=== PATIENT | male | born 1955 | race Caucasian/White ===

== ENCOUNTER 2019-08-26 09:15 | Outpatient (CLI) | payer OTHER, SELFPAY ==
[2019-08-26 10:27] LABS: Hematocrit 48.6 % (42.0-52.0); Hemoglobin 15.1 g/dL (14.0-18.0); Mean Corpuscular HGB Conc 31.1 g/dl (32-36); Mean Corpuscular Hemoglobin 27.3 pg (26-34); Mean Corpuscular Volume 87.7 fl (80-100); Mean Platelet Volume 12.8 fl (7.4-10.4); Platelet Count Result 171 k/mm3 (150-375); Red Blood Count 5.54 M/mm3 (4.6-6.20); Red Cell Distribution Width 15.1 % (11.5-14.5)
[2019-08-26 10:42] LABS: Blood Urea Nitrogen 14 mg/dL (9-20); Calcium 9.5 mg/dL (8.4-10.2); Carbon Dioxide 29 mmol/L (22-30); Chloride 98 mmol/L (98-107); Estimated Glomerular Filt Rate > 60; Glucose 145 mg/dL (75-110); Potassium 4.3 mmol/L (3.4-5.0); Sodium 138 mmol/L (137-145)
[2019-08-26 11:16] LABS: Vitamin D 25 Hydroxy 25.7 ng/mL
[2019-08-30 15:26] LABS: CMV IgM Antibody <30.00 AU/mL (<30.00)
[2019-08-31 14:58] LABS: EBV Nuclear Ab Interpretation Past; EBV Virus Capsid Ag IgG Ab >750.00 U/mL (<18.00); EBV Virus Capsid Ag IgM Ab <36.00 U/mL (<36.00)
== END 2019-08-26 09:16 | disposition home or self-care (01) ==
PROVIDERS: PCP Family Medicine; Visit Provider Physician Assistant Medical
DX: R53.82 Chronic fatigue, unspecified (principal); Z79.899 Other long term (current) drug therapy
CPT/HCPCS: 36415; 80048; 82306; 82607; 84443; 85027; 86644; 86645; 86664; 86665

== ENCOUNTER 2020-01-09 16:10 | Outpatient (CLI) | payer OTHER, SELFPAY ==
[2020-01-10 01:16] LABS: Hematocrit 47.3 % (42.0-52.0); Hemoglobin 15.3 g/dL (14.0-18.0); Immature Platelet Fraction Pct 16.2 % (0.9-11.2); Mean Corpuscular HGB Conc 32.3 g/dl (32-36); Mean Corpuscular Hemoglobin 27.9 pg (26-34); Mean Corpuscular Volume 86.2 fl (80-100); Mean Platelet Volume 13.3 fl (7.4-10.4); Platelet Count Result 153 k/mm3 (150-375); Red Blood Count 5.49 M/mm3 (4.6-6.20); Red Cell Distribution Width 14.8 % (11.5-14.5); White Blood Count 6.2 K/mm3 (4.5-10.0)
[2020-01-10 13:45] LABS: Blood Urea Nitrogen 16 mg/dL (9-20); Calcium 9.4 mg/dL (8.4-10.2); Carbon Dioxide 24 mmol/L (22-30); Chloride 99 mmol/L (98-107); Estimated Glomerular Filt Rate > 60; Glucose 269 mg/dL (75-110); Potassium 4.2 mmol/L (3.4-5.0); Sodium 136 mmol/L (137-145)
== END 2020-01-09 16:11 | disposition home or self-care (01) ==
PROVIDERS: PCP Family Medicine; Visit Provider Physician Assistant Medical
DX: R00.2 Palpitations (principal)
CPT/HCPCS: 36415; 80048; 84443; 85027; 85055

== ENCOUNTER 2020-01-16 13:52 | Outpatient (CLI) | payer OTHER, SELFPAY ==
[2020-01-16 14:53] LABS: Hemoglobin A1C 12.1 % (<5.7)
[2020-01-16 14:56] LABS: Blood Urea Nitrogen 13 mg/dL (9-20); Calcium 9.4 mg/dL (8.4-10.2); Carbon Dioxide 28 mmol/L (22-30); Chloride 97 mmol/L (98-107); Estimated Glomerular Filt Rate > 60; Glucose 497 mg/dL (75-110); Potassium 4.5 mmol/L (3.4-5.0); Sodium 133 mmol/L (137-145)
--- NOTE | 2020-01-19 12:34 | WPDHOLTEREM ---
Holter/Event Monitor Holter/Event Monitor Date of procedure: 01/16/20 Procedure Type: 48 hour holter monitor Indications: Palpitations Conclusion: 1. 48 hour holter monitor on 01/16/20. 2. Predominant rhythm is sinus rhythm. HR range 46-109 bpm; average HR 70 bpm. 3. There are 203 premature supraventricular complexes, 8 supraventricular couplets, 3 supraventricular bigeminy and 3 supraventricular trigeminy. There are 8 episodes of atrial tachycardia, fastest at 150 bpm and longest lasting 52 beats. 4. There are 815 premature ventricular complexes, 16 ventricular couplets and 2 ventricular triplets. No ventricular tachycardia. 5. No sinoatrial or atrioventricular blocks. No significant pauses greater than 2 seconds. 6. Patient reports racing heartbeat at 01:53 which demonstrate atrial tachycardia at 143 bpm.
== END 2020-01-16 13:53 | disposition home or self-care (01) ==
PROVIDERS: Referring Provider Family Medicine; Visit Provider Physician Assistant Medical
DX: R73.09 Other abnormal glucose (principal); E87.1 Hypo-osmolality and hyponatremia; R00.2 Palpitations
CPT/HCPCS: 36415; 80048; 83036; 93225; 93226

== ENCOUNTER 2020-01-18 15:57 | Outpatient (CLI) | payer OTHER, SELFPAY ==
[2020-01-18 16:39] LABS: Alanine Aminotransferase 124 U/L (4-50); Albumin Level 4.2 g/dL (3.5-5.1); Alkaline Phosphatase 118 U/L (38-126); Aspartate Amino Transferase 65 U/L (17-59); Bilirubin,Total 0.3 mg/dL (0.2-1.3); Blood Urea Nitrogen 19 mg/dL (9-20); Calcium 9.5 mg/dL (8.4-10.2); Carbon Dioxide 26 mmol/L (22-30); Chloride 101 mmol/L (98-107); Cholesterol 109 mg/dL (0-200); Estimated Glomerular Filt Rate > 60; Glucose 257 mg/dL (75-110); HDL Direct 58 mg/dL; Potassium 4.1 mmol/L (3.4-5.0); Sodium 135 mmol/L (137-145); Triglycerides 124 mg/dL (<150)
[2020-01-18 16:50] LABS: LDL Cholesterol Direct 32 mg/dL
[2020-01-22 03:59] LABS: Insulin Level Total 12.5 uIU/mL (<=19.6)
[2020-01-22 23:12] LABS: C-Peptide 3.73 ng/mL (0.80-3.85)
== END 2020-01-18 15:58 | disposition home or self-care (01) ==
PROVIDERS: Visit Provider Physician Assistant Medical
DX: E11.9 Type 2 diabetes mellitus without complications (principal); Z13.220 Encounter for screening for lipoid disorders
CPT/HCPCS: 36415; 80053; 80061; 83525; 84681

== ENCOUNTER 2020-01-27 13:53 | Outpatient (CLI) | payer OTHER, SELFPAY ==
[2020-01-27 16:11] LABS: Hepatitis B Surface Antigen Negative (Negative)
[2020-01-27 16:17] LABS: HAV RESULT Negative (Negative); Hepatitis B Core IgM Result Negative (Negative)
[2020-01-27 16:28] LABS: Hepatitis C Virus Antibody Negative (Negative)
== END 2020-01-27 13:54 | disposition home or self-care (01) ==
PROVIDERS: Visit Provider Physician Assistant Medical
DX: R79.89 Other specified abnormal findings of blood chemistry (principal)
CPT/HCPCS: 36415; 80074

== ENCOUNTER → 2020-08-09 13:32 | Outpatient (REF) | payer OTHER, SELFPAY | LOC: ANHLAB 13:32 | PROVIDERS: Visit Provider Nurse Practitioner | DX: R22.9 Localized swelling, mass and lump, unspecified (principal) | CPT/HCPCS: 88304 ==

== ENCOUNTER 2021-03-19 11:52 | Outpatient (CLI) | payer OTHER, SELFPAY ==
[2021-03-19 12:27] LABS: Basophils Absolute Auto 0.1 K/mm3 (0.0-0.1); Eosinophils Absolute Auto 0.3 K/mm3 (0-0.3); Eosinophils Percent Auto 4.9 % (0-4.4); Hematocrit 46.9 % (42.0-52.0); Hemoglobin 14.8 g/dL (14.0-18.0); Immature Granulocyte Absolute 0.03 K/mm3 (0.00-0.031); Immature Granulocyte Percent A 0.4 % (0-0.5); Lymphocytes Absolute Auto 1.53 K/mm3 (0.9-3.2); Lymphocytes Percent Auto 22.6 % (18.3-44.2); Mean Corpuscular HGB Conc 31.6 g/dl (32-36); Mean Corpuscular Hemoglobin 27.5 pg (26-34); Mean Corpuscular Volume 87.2 fl (80-100); Mean Platelet Volume 11.4 fl (7.4-10.4); Monocytes Absolute Auto 0.7 K/mm3 (0.1-0.6); Monocytes Percent Auto 10.6 % (2.6-8.5); Neutrophils Absolute Auto 4.1 K/mm3 (1.3-6.7); Neutrophils Percent Auto 60.5 % (45.5-73.1); Platelet Count Result 184 k/mm3 (150-375); Red Blood Count 5.38 M/mm3 (4.6-6.20); Red Cell Distribution Width 14.5 % (11.5-14.5); White Blood Count 6.8 K/mm3 (4.5-10.0)
[2021-03-19 12:47] LABS: Alanine Aminotransferase 69 U/L (4-50); Albumin Level 4.5 g/dL (3.5-5.1); Alkaline Phosphatase 69 U/L (38-126); Anion Gap 10 mmol/L (8-16); Aspartate Amino Transferase 48 U/L (17-59); Bilirubin,Total 0.3 mg/dL (0.2-1.3); Blood Urea Nitrogen 16 mg/dL (9-20); CRP < 0.5 mg/dL (<1.0); Calcium 9.5 mg/dL (8.4-10.2); Carbon Dioxide 25 mmol/L (22-30); Chloride 104 mmol/L (98-107); Cholesterol 98 mg/dL (0-200); Estimated Glomerular Filt Rate > 60; Glucose 106 mg/dL (65-110); HDL Direct 79 mg/dL; Potassium 4.4 mmol/L (3.4-5.0); Sodium 139 mmol/L (137-145); Triglycerides 53 mg/dL (<150)
[2021-03-19 13:02] LABS: Creatinine Urine 90.1 mg/dL
[2021-03-19 13:19] LABS: LDL Cholesterol Direct < 30 mg/dL
[2021-03-19 13:20] LABS: MALB Creatinine Ratio < 6.7 mg/g (0-30); Microalbumin Urine Random < 6.0 mg/L (0-16.7)
[2021-03-19 13:28] LABS: Erythrocyte Sedimentation Rate 3 mm/hr (0-20)
[2021-03-21 11:09] LABS: Anti Nuclear Antibody Pattern Nuclear, Nucleolar
== END 2021-03-19 11:53 | disposition home or self-care (01) ==
LOC: ANHLAB 11:56
PROVIDERS: Visit Provider Nurse Practitioner Family
DX: L81.9 Disorder of pigmentation, unspecified (principal); Z13.29 Encounter for screening for other suspected endocrine disorder; E11.9 Type 2 diabetes mellitus without complications; R79.89 Other specified abnormal findings of blood chemistry; E78.5 Hyperlipidemia, unspecified
CPT/HCPCS: 36415; 80053; 80061; 82043; 84443; 85025; 85652; 86038; 86039; 86140

== ENCOUNTER 2021-08-14 16:29 | Outpatient (CLI) | payer OTHER, SELFPAY ==
--- NOTE | ~2021-08-14 | XR_ITS ---
EXAMINATION: XR wrist RT min 3V DATE: 08/14/2021 16:56 INDICATION: Right wrist pain. TECHNIQUE: 5 views of right wrist were obtained. COMPARISON: None. FINDINGS: Bone alignment is normal. No fracture. There is mild osteoarthritis of radiolunate joint, r adioscaphoid joint, triscaphe joint, and first carpometacarpal joint. IMPRESSION: 1. Mild polyarticular osteoarthritis. Reviewed, dictated and finalized at location E. ICAL TRIAL EDUCATOR
== END 2021-08-14 16:30 | disposition home or self-care (01) ==
LOC: ANHIMG 16:33
PROVIDERS: Visit Provider Nurse Practitioner Family
DX: M19.031 Primary osteoarthritis, right wrist (principal)
CPT/HCPCS: 73110

== ENCOUNTER 2021-09-04 12:20 | Outpatient (CLI) | payer OTHER, SELFPAY ==
[2021-09-04 13:02] LABS: Rheumatoid Factor < 8.6 IU/ML (<12)
[2021-09-04 13:03] LABS: CRP < 0.5 mg/dL (<1.0)
[2021-09-04 14:20] LABS: Erythrocyte Sedimentation Rate 3 mm/hr (0-20)
== END 2021-09-04 12:21 | disposition home or self-care (01) ==
DX: R76.8 Other specified abnormal immunological findings in serum (principal); M25.50 Pain in unspecified joint
CPT/HCPCS: 36415; 85652; 86140; 86430

== ENCOUNTER 2021-09-10 11:03 | Outpatient (CLI) | payer OTHER, SELFPAY | END 2021-09-10 11:04 | disposition home or self-care (01) | DX: M25.50 Pain in unspecified joint (principal) | CPT/HCPCS: 36415; 82728 ==

== ENCOUNTER 2023-03-02 11:30 | Outpatient (CLI) | payer MEDICARE, OTHER, SELFPAY ==
[2023-03-02 12:10] LABS: Hematocrit 45.2 % (42.0-52.0); Hemoglobin 14.5 g/dL (14.0-18.0); Mean Corpuscular HGB Conc 32.1 g/dl (32-36); Mean Corpuscular Hemoglobin 28.4 pg (26-34); Mean Corpuscular Volume 88.6 fl (80-100); Mean Platelet Volume 11.4 fl (7.4-10.4); Platelet Count Result 168 k/mm3 (150-375); Red Cell Distribution Width 14.8 % (11.5-14.5); White Blood Count 5.9 K/mm3 (4.5-10.0)
[2023-03-02 12:27] LABS: Alanine Aminotransferase 150 U/L (6-50); Albumin Level 4.5 g/dL (3.5-5.1); Alkaline Phosphatase 73 U/L (38-126); Anion Gap 3 mmol/L (8-16); Aspartate Amino Transferase 86 U/L (17-59); Bilirubin,Total 0.3 mg/dL (0.2-1.3); Blood Urea Nitrogen 16 mg/dL (9-20); Calcium 9.3 mg/dL (8.4-10.2); Carbon Dioxide 32 mmol/L (22-30); Chloride 103 mmol/L (98-107); Cholesterol 118 mg/dL (0-200); Estimated Glomerular Filt Rate > 60; Glucose 111 mg/dL (65-110); HDL Direct 82 mg/dL; Potassium 4.5 mmol/L (3.4-5.0); Sodium 138 mmol/L (137-145); Triglycerides 42 mg/dL (<150)
[2023-03-02 12:39] LABS: LDL Cholesterol Direct 33 mg/dL
[2023-03-02 12:54] LABS: Prostate Specific Antigen 1.4 ng/mL (< OR = 4.0)
[2023-03-02 12:54] LABS: Creatinine Urine 61.9 mg/dL
[2023-03-02 13:16] LABS: MALB Creatinine Ratio < 9.7 mg/g (0-30); Microalbumin Urine Random < 6.0 mg/L (0-16.7)
== END 2023-03-02 11:31 | disposition home or self-care (01) ==
PROVIDERS: PCP Family Medicine; Visit Provider Physician Assistant Medical
DX: E11.9 Type 2 diabetes mellitus without complications (principal); K21.9 Gastro-esophageal reflux disease without esophagitis; Z12.5 Encounter for screening for malignant neoplasm of prostate; R74.01 Elevation of levels of liver transaminase levels
CPT/HCPCS: 36415; 80053; 80061; 82043; 84153; 84443; 85027; G0103

== ENCOUNTER 2023-03-04 10:50 | Outpatient (CLI) | payer MEDICARE, OTHER, SELFPAY ==
[2023-03-04 13:30] LABS: Hepatitis B Surface Antigen Negative (Negative)
[2023-03-04 13:36] LABS: HAV RESULT Negative (Negative); Hepatitis B Core IgM Result Negative (Negative)
[2023-03-04 13:48] LABS: Hepatitis C Virus Antibody Negative (Negative)
[2023-03-06 15:52] LABS: GGT 45 U/L (3-70)
== END 2023-03-04 10:51 | disposition home or self-care (01) ==
PROVIDERS: PCP Family Medicine; Visit Provider Nurse Practitioner Family
DX: R74.8 Abnormal levels of other serum enzymes (principal); R74.01 Elevation of levels of liver transaminase levels
CPT/HCPCS: 36415; 80074; 82977

== ENCOUNTER → 2023-03-27 09:40 | Outpatient (CLI) | payer MEDICARE, OTHER, SELFPAY ==
--- NOTE | ~2023-03-27 | US_ITS ---
Abdominal Sonogram: Real-time sonographic imaging of the abdomen was performed. Clinical History: Abnormal serum enzyme levels Findings: The liver appears echogenic, with no evidence of mass lesion or bile duct dilatation. Main portal vein demonstrates normal direction of flow. The spleen is normal in size without evidence of focal lesion. The gallbladder is well distended, and appears normal with no evidence of gallstone or wall thickening. The common bile duct measures 5 mm. The visualized pancreas, aorta, and IVC are un remarkable. The right kidney measures 10.8 cm in length and the left kidney measures 9.8 cm. There is no hydronephrosis or renal calculus. Impression: Diffuse fatty infiltration of the liver. Reviewed, dictated and finalized at location M. Impression: Diffuse fatty infiltration of the liver.
== END ==
PROVIDERS: PCP Physician Assistant Medical; Visit Provider Physician Assistant Medical
DX: R74.8 Abnormal levels of other serum enzymes (principal); K76.0 Fatty (change of) liver, not elsewhere classified
CPT/HCPCS: 76700

== ENCOUNTER 2023-06-12 07:39 | Outpatient (CLI) | payer MEDICARE, OTHER, SELFPAY ==
--- NOTE | ~2023-06-12 | US_ITS ---
US abdomen limited INDICATION: Fatty infiltration of the liver PROCEDURE: Realtime right upper abdominal ultrasound. COMPARISON: No prior studies for comparison. FINDINGS: The pancreas is normal without focal mass or pancreatic ductal dilation. Liver echotexture is diffusely increased, consistent with fatty infiltration. There is normal directional flow in the portal vein. The gallbladder is normal without stones, gallbladder wall thickening or pericholecystic fluid. Comm on bile duct measures 3 mm. No sonographic Hernández's sign. IMPRESSION: 1: Fatty infiltration of the liver. Reviewed, dictated and finalized at location B. ING NEWS PRODUCER
== END 2023-06-12 07:40 | disposition home or self-care (01) ==
LOC: ANHIMG 07:42
PROVIDERS: PCP Physician Assistant Medical; Visit Provider Internal Medicine Gastroenterology
DX: K76.0 Fatty (change of) liver, not elsewhere classified (principal); R79.89 Other specified abnormal findings of blood chemistry; R74.8 Abnormal levels of other serum enzymes
CPT/HCPCS: 76705

== ENCOUNTER 2023-11-06 13:42 | Outpatient (CLI) | payer MEDICARE, OTHER, SELFPAY ==
[2023-11-06 15:17] LABS: Alanine Aminotransferase 93 U/L (6-50); Albumin Level 4.5 g/dL (3.5-5.1); Alkaline Phosphatase 65 U/L (38-126); Aspartate Amino Transferase 59 U/L (17-59); Bilirubin,Total 0.5 mg/dL (0.2-1.3)
== END 2023-11-06 13:43 | disposition home or self-care (01) ==
PROVIDERS: PCP Physician Assistant Medical; Visit Provider Internal Medicine Gastroenterology
DX: R74.8 Abnormal levels of other serum enzymes (principal)
CPT/HCPCS: 36415; 80076

== ENCOUNTER 2024-11-30 15:48 | Outpatient (CLI) | payer MEDICARE, OTHER, SELFPAY ==
--- NOTE | ~2024-11-30 | CT_ITS ---
EXAMINATION: CT sinus wo con DATE: 11/30/2024 16:00 INDICATION: Chronic sinusitis TECHNIQUE: Computed tomography (CT) of the paranasal sinuses was performed without intravenous contra st. The dose-length product was 287.09 mGy-cm. Automated exposure control and iterative reconstructio n technique were employed. COMPARISON: None FINDINGS: There are surgical changes of the ostiomeatal units. There is mucosal thickening of the max illary, ethmoid, sphenoid sinuses. No significant nasal septal deviation. Mastoids are pneumatized. IMPRESSION: 1. Moderate sinus disease. Reviewed, dictated and finalized at location A. IMPRESSION: 1. Moderate sinus disease.
== END 2024-11-30 15:49 | disposition home or self-care (01) ==
LOC: MICIMG 15:49
PROVIDERS: PCP Otolaryngology Otolaryngology/Facial Plastic Surgery; Visit Provider Otolaryngology Otolaryngology/Facial Plastic Surgery
DX: J32.9 Chronic sinusitis, unspecified (principal)
CPT/HCPCS: 70486

== ENCOUNTER 2025-02-08 08:39 | Outpatient (CLI) | payer MEDICARE, OTHER, SELFPAY ==
--- OUTSIDE RECORDS SUMMARY | 2025-02-08 08:50 | XMS_ITS | Clinical Summary ---
Author Organization [facility] Address [address] [address] Care Team Providers Care Valuer Name Role Phone Siva Chacon MD Primary Care Provider [phone] Source Comments [facility],non-owned Affiliates and Associated Physician Practices is amultiple site organization consisting of ambulatory clinics and hospital sitesin [place], [place], [place] and [place]. This disclosure is being madepursuant to the Care Everywhere program and may not contain all information available regarding this patient. Last updated 18.[facility] Allergies Active Allergy Reactions Criticality Noted Date Comments Cephradine Unknown 05/21/2001 Medications * Be aware that medications may not be up to date on this document. Alwaysverify current medications with the patient. ELIQUIS 5 MG tablet Take 5 mg by mouth 2 times daily 07/25/2021 Active MULTAQ 400 MG tablet Take 400 mg by mouth 2 times daily 07/25/2021 Active finasteride (PROSCAR) 5 MG tablet Take 5 mg by mouth once daily 08/01/2021 Active Glucagon (GVOKE PFS) 1 MG/0.2ML SOSY Use 1 syringe as directed 07/25/2020 Active loratadine (CLARITIN) 10 MG tablet Take 10 mg by mouth once daily 08/17/2021 Active metFORMIN ER 24hr (GLUCOPHAGE XR) 500 MG tablet Take 500 mg by mouth once daily 07/10/2021 Active rosuvastatin (CRESTOR) 20 MG tablet Take 20 mg by mouth once daily 07/07/2021 Active Active Problems Problem Noted Date Diagnosed Date Dupuytren contracture 08/28/2021 Osteoarthritis of both hands 08/28/2021 Polyarthralgia 08/28/2021 Immunizations Immunization Administration Dates Next Due ANTHRAX, HISTORIC VACCINE 08/20/1999,,08/06/1998,1998,06/23/1998 Covid Moderna primary monova lent 12+ yr 0.5mL 10/18/2020,09/20/2020 FLU VACCINE TRI IIV3 SPLIT P F IM (FLUVIRIN) 04/05/2013 HEP A VACCINE, ADULT 01/25/1999,06/20/1998 INFLUENZA VACCINE 05/15/2005, 4,04/29/2002,2000,07/09/2000,08/20/1999,06/20/1998,1 INFLUENZA VACCINE, QUADR. (F LUZONE; FLULAVAL; FLUARIX; AFLURIA QUADRIVALENT; 6MO+), 0.5 ML (IIV4) 04/17/2017 MENINGOCOCAL MENINGITIS 06/23/1998 POLIO IPV 08/20/1999 TYPHOID VACCINE H-P 10/06/2003,06/23/1998 Td (Adult), 2 Lf Tetanus Tox oid, Adsorbed, Pf 06/23/1998 YELLOW FEVER 06/23/1998 Social History Tobacco Use Types Packs/Day Years Used Date Smoking Tobacco: Never Smokeless Tobacco: Never Alcohol Use Standard Drinks/Week Comments Yes 0 (1 standard drink = 0.6 oz pur e alcohol) social PHQ-2 Answer Date Recorded PHQ2 TOTAL SCORE 0 08/28/2021 Sex and Gender Information Value Date Recorded Sex Assigned at Not on file 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 Gender Identity Not on file Sexual Orientation Not on file Last Filed Vital Signs Vital Sign Reading Time Taken Comments Blood Pressure 116/76 08/28/2021 12:44 PM CIRCULAR TANK COOPER Pulse 72 08/28/2021 12:44 PM CIRCULAR TANK COOPER Temperature 36.8 C (98.3 F) 08/28/2021 12:44 PM CIRCULAR TANK COOPER Respiratory Rate - - Oxygen Saturation - - Inhaled Oxygen Concentration - - Weight 87.5 kg (193 lb) 08/28/2021 12:44 PM CIRCULAR TANK COOPER Height 188 cm (6' 2) 08/28/2021 12:44 PM CIRCULAR TANK COOPER Body Mass Index 24.78 08/28/2021 12:44 PM CIRCULAR TANK COOPER Plan of Treatment Health Maintenance Due Date Last Done Comments COLOGUARD (AGES 45-75) - COLON CA SCREENING 1957 COLON MONITORING 1957 COLONOSCOPY - COLON CA SCREENING 1957 CT COLONOGRAPHY - COLON CA SCREENING 1957 Colorectal Cancer Screening 1957 FIT - COLON CA SCREENING 1957 FLEX SIG - COLON CA SCREENING 1957 HEPATITIS C SCREENING 01/30/1975 DTAP/TDAP/TD VACCINES (1 - Tdap) 06/24/1998 06/23/1998 PNEUMOCOCCAL VACCINE 50+ (1 of 1 - PCV) 2007 ZOSTER VACCINE (1 of 2) 2007 COVID-19 VACCINE (3 - season) 2024 10/18/2020, 09/20/2020 DEPRESSION SCREENING 07/06/2024 INFLUENZA VACCINE (#1) 2025 7, 04/05/2013, 05/15/2005, Additional history exists Respiratory Syncytial Virus (RSV) Vaccine Pt: or over 60 yrs (1 - 1-dose 75+ series) 02/04/2032 MENINGOCOCCAL GROUPS A/C/Y/W VACCINE Aged Out 06/23/1998 No longer eligible based on patient's age to complete this topic HEPATITIS B VACCINE Aged Out No longe r eligible based on patient's age to complete this topic HIB VACCINE Aged Out No longer eligi ble based on patient's age to complete this topic HPV VACCINE Aged Out No longer eligi ble based on patient's age to complete this topic MENINGOCOCCAL (Group B) VACCINE SHARED DECISION-MAKING Aged Out No longer eligible based on patient's age to complete this topic Insurance Care Teams Valuer Relationship Specialty Start Date End Date Siva Chacon MD [address] [place] [address] PCP - General 08/10/20
--- OUTSIDE RECORDS SUMMARY | 2025-02-08 08:50 | XMS_ITS | Encounter Summary ---
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 Historical Provider [facility] MARGARITO LEDESMA Final Result * CARDIOLOGY REPORT (12/09/2016 12:00 AM CDT) Anatomical Region Laterality Modality Other Narrative 12/09/2016 12:00 AM CDT Ordered by an unspecified provider. us Historical Provider [facility] PROCE DURES Final Result * CARDIOLOGY REPORT (12/09/2016 12:00 AM CDT) Anatomical Region Laterality Modality Other Narrative 12/09/2016 12:00 AM CDT Ordered by an unspecified provider. us Historical Provider [facility] PROCE DURES Final Result documented in this encounter Visit Diagnoses Not on filedocumented in this encounter Additional Health Concerns Infection Onset Date Last Indicated Resolved Time COVID19 10/21/2020 10/20/2020 documented as of this encounter Care Teams Aquatics Specialist Relationship Specialty Start Date End Date No, Physician PCP - General 01/31/20 10/20/20 Siva Chacon MD PCP - General 10/21/20 documented as of this encounter
--- OUTSIDE RECORDS SUMMARY | 2025-02-08 08:51 | XMS_ITS | Clinical Summary ---
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 Gender Identity Not on file Sexual Orientation Not on file Last Filed Vital Signs Vital Sign [place] Time Taken Comments Blood Pressure 142/90 08/12/2021 11:26 PM AUTOMOBILE SEAT COVER INSTALLER Pulse 63 08/12/2021 11:26 PM AUTOMOBILE SEAT COVER INSTALLER Temperature 36.4 C (97.6 F) 08/12/2021 7:47 PM AUTOMOBILE SEAT COVER INSTALLER Respiratory Rate 20 08/12/2021 11:26 PM AUTOMOBILE SEAT COVER INSTALLER Oxygen Saturation 95% 08/12/2021 11:26 PM AUTOMOBILE SEAT COVER INSTALLER Inhaled Oxygen Concentration - - Weight 89.1 kg (196 lb 6.9 oz) 08/12/2021 7:47 P M AUTOMOBILE SEAT COVER INSTALLER Height 188 cm (6' 2) 08/12/2021 7:47 PM AUTOMOBILE SEAT COVER INSTALLER Body Mass Index 25.22 08/12/2021 7:47 PM AUTOMOBILE SEAT COVER INSTALLER Plan of Treatment Health Maintenance Due Date Last Done Comments Colon Cancer Screening-Colonoscopy 1957 Depression Screening 1957 Fall Risk Assessment 1957 Hepatitis C Screening 1957 Prostate Cancer Screening-PSA 1957 Hepatitis B Screening 1975 Pneumococcal vaccine 65+ (1 of 1 - PCV) 2007 Zoster Vaccine (1 of 2) 2007 Abdominal Aortic Aneurysm (AAA) Screen 2022 Well Visit 65+ 2022 Covid-19 Vaccine (2 - season) 03/06/202412/2021 Influenza Vaccine (#1) 2025 DTaP/Tdap/Td Vaccine (3 - Td or Tdap) 10/21/2030, 10/14/2014 Procedures Procedure Name Priority Date/Time Associated Diagnosis Comments CT ABDOMEN W CONTRAST Routine 11/15/2016 12:00 AM CDT from Last 3 Months or Most Recently Relevant to Health Maintenance Results * CT Abdomen W Contrast (11/15/2016 12:00 AM CDT) Anatomical Region Laterality Modality Body N/A Computed Tomogra phy 11/15/2016 Impressions 11/15/2016 2:10 AM CDT No acute findings. Moderate diffuse hepatic steatosis. Automated exposure control was used as a dose optimization technique for this examination. THIS IS AN ELECTRONICALLY VERIFIED REPORT 11/15/2016 2:06 AM: Jonatan Najera M.D. Jonatan Najera M.D. RW:filipe 02:06 AM 02:06 AM IVAN [EOD] Narrative 11/15/2016 2:10 AM CDT EXAMINATION: CT ABDOMEN WITH CONTRAST HISTORY: Back pain chest pain left jaw pain for 1 day COMPARISON: None available. TECHNIQUE: 100 ml Omnipaque 350 Left antecubital fossa IV without complication. FINDINGS: Lower Chest: Included on CT chest performed the same time. Moderate diffuse hepatic steatosis. The gallbladder is normal. The spleen and pancreas are unremarkable. The adrenal glands are normal size. Kidneys are normal size. No hydronephrosis. No evidence of urolithiasis. Included portions of the colon unremarkable. The stomach is unremarkable. Included portions of small bowel unremarkable.Abdominal aorta normal. Moderate degenerative disc disease at L5-S1. No evidence of pneumoperitoneum. There is no ascites. Procedure Note Provider, MD Raz - 11/20/2020 EXAMINATION: CT ABDOMEN WITH CONTRAST HISTORY: Back pain chest pain left jaw pain for 1 day COMPARISON: None available. TECHNIQUE: 100 ml Omnipaque 350 Left antecubital fossa IV withoutcomplication. FINDINGS: Lower Chest: Included on CT chest performed the same time. Moderate diffuse hepatic steatosis. The gallbladder is normal. The spleen and pancreas are unremarkable. The adrenal glands are normal size. Kidneys are normal size. No hydronephrosis. No evidence of urolithiasis. Included portions of the colon unremarkable. The stomach is unremarkable. Included portions of small bowel unremarkable.Abdominal aorta normal. Moderate degenerative disc disease at L5-S1. No evidence of pneumoperitoneum. There is no ascites. IMPRESSION: No acute findings. Moderate diffuse hepatic steatosis. Automated exposure control was used as a dose optimization technique forthis examination. THIS IS AN ELECTRONICALLY VERIFIED REPORT 11/15/2016 2:06 AM: Jonatan Najera M.D. Jonatan Najera M.D. RW:filipe 02:06 AM 02:06 AM IVAN [EOD] Judd Frey MD IM CT PROCEDURES Final Res ult from Last 3 Months or Most Recently Relevant to Health Maintenance Additional Health Concerns Infection Onset Date Last Indicated COVID19 10/21/2020 10/20/2020 Insurance MEDICARE [facility] Care Teams Business Education Instructor Relationship Specialty Start Date End Date Siva Chacon MD PCP - General 10/21/20
--- OUTSIDE RECORDS SUMMARY | 2025-02-08 08:51 | XMS_ITS | Clinical Summary ---
Author Organization [facility] [address] [facility] Address [address] [place] [address] Care Team Providers Care Health Education Aide Name Role Phone Yara Nguyen PA-C Primary Care Provider [phone] Allergies Active Allergy Reactions Criticality Noted Date Comments Cephradine Unknown 05/21/2001 Medications finasteride (PROPECIA) 1 mg Tablet Take 1 mg by mouth daily. Active metFORMIN (GLUCOPHAGE XR) 500 mg Extended Release 24 hour tablet Take 500 mg by mouth daily. Active rosuvastatin (CRESTOR) 20 mg tablet Take 20 mg by mouth daily at bedtime. Active loratadine (CLARITIN) 10 mg tablet Take 10 mg by mouth daily. Active glucagon (Gvoke PFS 1-Pack Syringe) 1 mg/0.2 mL Syringe 1 Syringe by NOT APPLICABLE route. 1 Active pantoprazole (PROTONIX) 20 mg Tablet, Delayed Release (E.C.) 4 Active sertraline (ZOLOFT) 25 mg tablet Take 1 Tablet by mouth daily. 5 Active apixaban (Eliquis) 5 mg tablet Take 1 Tablet (5 mg) by mouth 2 times daily. 60 Tablet 5 Active dronedarone (Multaq) 400 mg TabletIndicatio ns:PAF (paroxysmal atrial fibrillation) (CMS/HCC),PAC (premature atrial contraction),At rial tachycardia Take 1 Tablet (400 mg) by mouth 2 times daily with meals. 60 Tablet 5 Active Eliquis 5 mg tablet TAKE 1 TABLET TWICE A DAY 180 Tablet 3 5 01/19/20 25 Discontin ued(Reord er) Multaq 400 mg TabletIndicatio ns:PAF (paroxysmal atrial fibrillation) (CMS/HCC),PAC (premature atrial contraction),At rial tachycardia TAKE 1 TABLET TWICE A DAY WITH MEALS 180 Tablet 3 5 01/19/20 25 Discontin ued(Reord er) Active Problems Problem Noted Date Diagnosed Date Type 2 diabetes mellitus wit hout complication, without long-term current use of insulin 07/29/2024 Essential hypertension 07/29/2024 Atrial tachycardia 03/13/2020 PAC (premature atrial contraction) 03/13/2020 Pure hypercholesterolemia 03/13/2020 Encounters Date Type Department Care Team Description 01/18/2025 External Device Data STL ABSTRACTION Provider, Abstract 01/18/2025 Orders Only [facility] - [address] [address] [place] [phone] Marija Khanna PAF (paroxysmal atrial fibrillation) ([facility]); PAC (premature atrial contraction); Atrial tachycardia 01/17/2025 External Device Data STL ABSTRACTION Provider, Abstract 01/09/2025 Refill [facility] - [address] [place] [address] Rossy Carbone MD PAF (paroxysmal atrial fibrillation) ([facility]); PAC (premature atrial contraction); Atrial tachycardia 12/20/2024 External Device Data STL ABSTRACTION Provider, Abstract 12/16/2024 10:00 AM CDT Office Visit [facility] - [address] [place] [address] Sarah Landeros NP Encounter for long-term (current) use of medications (Primary Dx); halfway (current) use of anticoagulants; 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 ([facility]); S/P ablation of atrial fibrillation 11/08/2024 Telephone [facility] - [address] [place] [address] Tal Tavarez MD Chest Pain from Last 3 Months Social History Tobacco Use Types Packs/Day Years Used Date Smoking Tobacco: Never Smokeless Tobacco: Never Tobacco Cessation:Counseling Given: Not Answered Alcohol Use Standard Drinks/Week Comments Yes 1 (1 standard drink = 0.6 oz pur e alcohol) Sex and Gender Information Value Date Recorded Sex Assigned at Not on file Legal Sex Male 9:36 AM CDT Gender Identity Not on file Sexual Orientation Not on file Last Filed Vital Signs Vital Sign [place] Time Taken Comments Blood Pressure 140/68 12/16/2024 9:59 AM CDT Pulse 60 12/16/2024 9:59 AM CDT Temperature 36.7 C (98 F) 11/04/2024 2:57 PM CDT Respiratory Rate 17 11/04/2024 4:30 PM CDT Oxygen Saturation 98% 12/16/2024 9:59 AM CDT Inhaled Oxygen Concentration - - Weight 88.5 kg (195 lb) 12/16/2024 9:59 AM CDT Height 188 cm (6' 2) 12/16/2024 9:59 AM CDT Body Mass Index 25.04 12/16/2024 9:59 AM CDT Plan of Treatment Upcoming Encounters Date Type Department Care Team (Late st Contact Info) Description 02/16/2025 10:00 AM CDT Office Visit [facility] - [address] [place] [address] [facility] [address] [place] [phone] [place] [address] [facility] [address] [place] [phone] 05/05/2025 4:00 PM CDT Office Visit [facility] - [address] [facility] [address] [address] [facility] [address] [place] [address] [place] [address] [facility] [address] [place] [address] Health Maintenance Due Date Last Done Comments DIABETES ANNUAL FOOT EXAM 1975 DIABETES MICROALBUMIN ANNUAL SCREEN 1975 LDL CHOLESTEROL ANNUAL 1975 DTAP/TDAP/TD VACCINES (1 - Tdap) 02/04/1976 PNEUMOCOCCAL VACCINE 50+ YEA RS (1 of 2 - PCV) 02/04/1976 COLORECTAL SCREENING 2002 Colorectal Cancer Screening 2002 FIT-DNA Q 3 years 2002 FIT/FOBT Q 1 year 2002 Flex Sig/CT Colonography Q 5 years 2002 ZOSTER VACCINE (1 of 2) 2007 DIABETES ANNUAL RETINAL EXAM 03/11/2023 03/11/2022 COVID-19 Vaccine (3 - 2023-2 5 season) 2024 10/18/2020, 09/20/2020 INFLUENZA VACCINE (#1) 2025 04/17/2017, 2012 DIABETES HBA1C Q 6 MONTHS 04/19/20252024, 07/18/2024, 04/13/2024, Additional history exists RSV VACCINE (60+ or ) (1 - 1-dose 75+ series) 02/04/2032 Medical Devices Implanted Type Area It Applications Manager Device Identifier Shelf Expiration Date Model / Serial / Lot Dev Cardiva Vascade Mvp Xl Vvcs 10-12fr [id number] - [id number] Implanted:Qty : 1 on 11/04/2024 by Tal Tavarez MD at [facility] Closure Device Right: [email or web address] [id number] 06/16/2026 [id number] L / / [id number] Procedures Procedure Name Priority Date/Time Associated Diagnosis Comments WV ECG ROUTINE ECG W/LEAST 12 LDS W/I&R Routine 12/16/2024 10:00 AM CDT Encounter for long-term (current) use of medications halfway (current) use of anticoagulants 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 (CMS/HCC) S/P ablation of atrial fibrillation TELEMETRY REPORT 11/14/2024 7:16 PM CDT TELEMETRY REPORT 11/14/2024 7:16 PM CDT from Last 3 Months Results * WV ECG ROUTINE ECG W/LEAST 12 LDS W/I&R (12/16/2024 10:00 AM CDT) Narrative Irma Cifuentes M - 12/16/2024 10:00 AM CDT Sarah Landeros NP 12/16/2024 10:18 AM EKG Date/Time: 12/16/2024 10:00 AM Performed by: Tal Tavarez MD Authorized by: Tal Tavarez MD Procedure Note Sarah Landeros NP - 12/16/2024 10:01 AM CDT EKG Date/Time: 12/16/2024 10:00 AM Performed by: Tal Tavarez MD Authorized by: Tal Tavarez MD Annotated Image us Tal Tavarez MD ECG ORDERABLES Final Result * TELEMETRY REPORT (11/14/2024 7:16 PM CDT) Only the most recent of2 resultswithin the time period is included. us Provider Scanning ECG ORDERABLES Final Result from Last 3 Months Insurance MEDICARE PART A AND B FOR LIFE Care Teams Health Education Aide Relationship Specialty Start Date End Date Yara Nguyen PA-C [address] [place] [address] PCP - General Physician Nurse College 02/17/20
[2025-02-08 09:22] LABS: Hematocrit 43.4 % (42.0-52.0); Hemoglobin 14.0 g/dL (14.0-18.0); Mean Corpuscular HGB Conc 32.3 g/dl (32-36); Mean Corpuscular Hemoglobin 27.5 pg (26-34); Mean Corpuscular Volume 85.3 fl (80-100); Platelet Count Result 136 k/mm3 (150-375); Red Blood Count 5.09 M/mm3 (4.6-6.20); White Blood Count 6.6 K/mm3 (4.5-10.0)
[2025-02-08 09:23] LABS: Immature Granulocyte Percent A 0.5 % (0-0.5); Lymphocytes Absolute Auto 2.01 K/mm3 (0.9-3.2); Nucleated Red Blood Cells Absolute Auto 0.000 K/mm3 (0.0-0.012); Nucleated Red Blood Cells Perc 0.0 % (0.0-0.2)
[2025-02-08 09:43] LABS: Alanine Aminotransferase 84 U/L (6-50); Albumin Level 4.4 g/dL (3.5-5.1); Alkaline Phosphatase 62 U/L (38-126); Anion Gap 7 mmol/L (4-12); Aspartate Amino Transferase 57 U/L (17-59); Bilirubin,Total 0.3 mg/dL (0.2-1.3); Blood Urea Nitrogen 18 mg/dL (9-20); Calcium 9.4 mg/dL (8.4-10.2); Carbon Dioxide 27 mmol/L (22-30); Chloride 105 mmol/L (98-107); Cholesterol 92 mg/dL (0-200); Estimated Glomerular Filt Rate > 60; Glucose 145 mg/dL (65-110); HDL Direct 66 mg/dL; Potassium 4.4 mmol/L (3.4-5.0); Sodium 139 mmol/L (137-145); Total Protein 7.2 g/dL (6.3-8.2); Triglycerides 50 mg/dL (<150)
[2025-02-08 10:19] LABS: Prostate Specific Antigen 1.0 ng/mL (< OR = 4.0)
[2025-02-08 10:37] LABS: MALB Creatinine Ratio < 4.7 mg/g (0-30)
== END 2025-02-08 08:40 | disposition home or self-care (01) ==
LOC: ANHLAB 08:42
PROVIDERS: PCP Physician Assistant Medical; Referring Provider Physician Assistant Medical; Visit Provider Otolaryngology Otolaryngology/Facial Plastic Surgery
DX: J32.9 Chronic sinusitis, unspecified (principal); E11.65 Type 2 diabetes mellitus with hyperglycemia; E78.5 Hyperlipidemia, unspecified; R79.89 Other specified abnormal findings of blood chemistry; K76.0 Fatty (change of) liver, not elsewhere classified; R74.01 Elevation of levels of liver transaminase levels; Z12.5 Encounter for screening for malignant neoplasm of prostate
CPT/HCPCS: 36415; 80053; 80061; 82043; 84153; 85025; G0103

== ENCOUNTER 2025-03-31 01:30 | Day surgery (SDC) | payer MEDICARE, OTHER, SELFPAY ==
--- OUTSIDE RECORDS SUMMARY | 2013-07-04 03:00 | XMS_ITS | Continuity of Care Document ---
Author Organization [facility] Address [address] [place] [address] [address] [place] [address] Phone Care Team Providers Care Wallpaper Hanger Name Role Phone Garett BARBER, OTR/L, Neisha Unavailable Unavail able Procedures Procedure Date OT RE-EVALUATION THERAPEUTIC EXERCISES MANUAL THERAPY FUNC ACTIVITY 15 MIN ULTRASOUND THERAPY HOT/COLD PACK THERAPEUTIC EXERCISES MANUAL THERAPY FUNC ACTIVITY 15 MIN ULTRASOUND THERAPY HOT/COLD PACK THERAPEUTIC EXERCISES MANUAL THERAPY FUNC ACTIVITY 15 MIN ULTRASOUND THERAPY HOT/COLD PACK THERAPEUTIC EXERCISES MANUAL THERAPY FUNC ACTIVITY 15 MIN ULTRASOUND THERAPY HOT/COLD PACK THERAPEUTIC EXERCISES MANUAL THERAPY FUNC ACTIVITY 15 MIN ULTRASOUND THERAPY HOT/COLD PACK THERAPEUTIC EXERCISES MANUAL THERAPY FUNC ACTIVITY 15 MIN ULTRASOUND THERAPY HOT/COLD PACK OT RE-EVALUATION THERAPEUTIC EXERCISES NEUROMUSCULAR RE-ED MANUAL THERAPY FUNC ACTIVITY 15 MIN ULTRASOUND THERAPY HOT/COLD PACK THERAPEUTIC EXERCISES NEUROMUSCULAR RE-ED MANUAL THERAPY FUNC ACTIVITY 15 MIN ULTRASOUND THERAPY HOT/COLD PACK THERAPEUTIC EXERCISES NEUROMUSCULAR RE-ED MANUAL THERAPY FUNC ACTIVITY 15 MIN ULTRASOUND THERAPY /COLD PACK THERAPEUTIC EXERCISES NEUROMUSCULAR RE-ED MANUAL THERAPY FUNC ACTIVITY 15 MIN ULTRASOUND THERAPY HOT/COLD PACK THERAPEUTIC EXERCISES NEUROMUSCULAR RE-ED MANUAL THERAPY FUNC ACTIVITY 15 MIN ULTRASOUND THERAPY /COLD PACK OT EVALUATION THERAPEUTIC EXERCISES MANUAL THERAPY ULTRASOUND THERAPY /COLD PACK THERAPEUTIC EXERCISES NEUROMUSCULAR RE-ED MANUAL THERAPY FUNC ACTIVITY 15 MIN THERAPEUTIC EXERCISES NEUROMUSCULAR RE-ED MANUAL THERAPY FUNC ACTIVITY 15 MIN THERAPEUTIC EXERCISES NEUROMUSCULAR RE-ED MANUAL THERAPY FUNC ACTIVITY 15 MIN THERAPEUTIC EXERCISES NEUROMUSCULAR RE-ED MANUAL THERAPY FUNC ACTIVITY 15 MIN THERAPEUTIC EXERCISES NEUROMUSCULAR RE-ED MANUAL THERAPY FUNC ACTIVITY 15 MIN THERAPEUTIC EXERCISES NEUROMUSCULAR RE-ED MANUAL THERAPY FUNC ACTIVITY 15 MIN THERAPEUTIC EXERCISES NEUROMUSCULAR RE-ED MANUAL THERAPY FUNC ACTIVITY 15 MIN THERAPEUTIC EXERCISES NEUROMUSCULAR RE-ED MANUAL THERAPY FUNC ACTIVITY 15 MIN ULTRASOUND THERAPY THERAPEUTIC EXERCISES NEUROMUSCULAR RE-ED MANUAL THERAPY FUNC ACTIVITY 15 MIN THERAPEUTIC EXERCISES NEUROMUSCULAR RE-ED MANUAL THERAPY FUNC ACTIVITY 15 MIN ULTRASOUND THERAPY HOT/COLD PACK THERAPEUTIC EXERCISES NEUROMUSCULAR RE-ED MANUAL THERAPY FUNC ACTIVITY 15 MIN HOT/COLD PACK THERAPEUTIC EXERCISES NEUROMUSCULAR RE-ED MANUAL THERAPY FUNC ACTIVITY 15 MIN HOT/COLD PACK Advance Directives Directive Yes / No Effective Date File Name No Information Encounters Encounter Description Practice Location Reason(s) For Visit Diagnoses Date Provider Providers Copied on Encounter [facility] [address] [place] [address], [id number], tel:[phone] [facility] No Information Garett Driver. [id number] [facility], [address], [facility], . tel:[phone] Referring Provider: Reji Sousa [address], [address]. tel:[phone], [id number], tel:[phone] [place] No Information Garett Driver. [id number] [facility], [facility] [address] [place], [facility], . tel:[phone] Referring Provider: Reji Sousa [address], [address]. tel:[phone], [id number], tel:[phone] [place] No Information Garett Driver. [address] [facility], [address], [facility], . tel:[phone] Referring Provider: Krish Brand, [address], [place], [address]. tel:[phone] [address] [facility], [place], [id number], tel:[phone] [place] No Information Garett Driver. [address] [place] [address], [address], [place], [place], [facility], . tel:[phone] Referring Provider: Krish Brand, [address], [place], [address]. tel:[phone] [address], [place], [place], [id number], tel:[phone] [place] No Information Garett Driver. [address] [place] [address], [address], [facility], . tel:[phone] Referring Provider: Krish Brand, [address], [place], [address]. tel:[phone] [address] [place] [address], [id number], tel:[phone] [place] No Information Garett Driver. [address] [place] [address], [address], [facility], . tel:[phone] Referring Provider: Krish Brand, [address], [place], [address]. tel:[phone] [address], [id number], tel:[phone] [place] No Information Garett Driver. [address] [place] [address], [address], [place], [facility], . tel:[phone] Referring Provider: Krish Brand, [address], [place], [address]. tel:[phone], [place], [place], [id number], tel:[phone] [place] No Information Garett Driver. [address] [place] [address], [address], [place], [facility], . tel:[phone] Referring Provider: Bianca Sousa[address], [place], [address]. tel:[phone], [place], [place], [id number], tel:[phone] [place] No Information Garett Driver. [address] [place] [address], [address], [facility], . tel:[phone] Referring Provider: Bianca Sousa[address], [place], [place], [facility]. tel:[phone], [place], [place], [id number], [place] tel:[phone] [place] No Information Garett Driver. [address] [place] [address], [address], [place], [facility], . tel:[phone] Referring Provider: Bianca Sousa[address], [place], [address]. tel:[phone], [place], [place], [id number], [place] tel:[phone] [place] No Information Garett Driver. [address] [place] [address], [address], [facility], . tel:[phone] Referring Provider: Krish Brand, [address], [place], [address]. tel:[phone] [address], [place], [place], [id number], [place] tel:[phone] [facility] Pain in joint involving hand Garett Driver. [address] [facility], [address], [place], [facility], [place]. tel:[phone] Referring Provider: Krish Brand, [address] [facility] [address], [place], [address]. tel:[phone], [id number], [place] tel:[phone] [place] No Information Aylin Gooden. [address] [facility], [address], [place], [facility], [place]. tel:[phone] Referring Provider: [place], [address]. tel:[phone], [id number], tel:[phone] [place] No Information Aylin Gooden. [address] [facility], [address], [place], [facility], [place]. tel:[phone] Referring Provider: [place], [address]. tel:[phone] [address], [id number], tel:[phone] [place] No Information Aylin Gooden. [address] [facility], [address], [place], [address], [place]. tel:[phone] Referring Provider: [place], [address]. tel:[phone] [address], [place], [place], [id number], tel:[phone] [place] No Information Vinnie Hurd. [address] [facility], [address] [place] [address], [facility], [place]. tel:[phone] Referring Provider: Luis [place], [address]. tel:[phone] [place] [address], [id number], tel:[phone] [facility] No Information Muehl Giacomo. [address] [facility], [address], [place], [facility], [place]. tel:[phone] Referring Provider: Luis [place], [address]. tel:[phone] [place] [address], [id number], tel:[phone] [place] No Information Muehl Giacomo. [address] [place] [address], [address], [place], [facility], [place]. tel:[phone] Referring Provider: Luis [place], [address]. tel:[phone], [id number], tel:[phone] [place] No Information Myronehl Giacomo. [address] [facility], [address], [place], [facility], . tel:[phone] Referring Provider: Luis [place], [address]. tel:[phone] [place] [address], [id number], tel:[phone] [place] No Information Myronehl Giacomo. [address] [facility], [address], [place], [facility], . tel:[phone] Referring Provider: Luis [place], [address]. tel:[phone], [id number], tel:[phone] [place] No Information Davidl Giacomo. [address] [facility], [place] [address], . tel:[phone] Referring Provider: Teresa Atwood [place], [facility]. tel:[phone], [id number], tel:[phone] [place] No Information Aylin Gooden. [address] [place] [address], [address], [facility], . tel:[phone] Referring Provider: Teresa Atwood [place], [facility]. tel:[phone], [id number], tel:[phone] [place] No Information Aylin Gooden. [address] [facility], [address], [facility], . tel:[phone] Referring Provider: Teresa Atwood [place], [facility]. tel:[phone], [id number], tel:[phone] [place] Pain in joint involving ankle and foot Aylin Gooden. [address] [facility], [facility] [address] [address], . tel:[phone] Referring Provider: Teresa Atwood [place], [facility]. tel:[phone] Family History Family Member Type Diagnosis Age At Onset No Information Payers Payer name Insurance type Covered libertarian ID Authoriza tion(s) No Information Social History Type Description Quantity Date Captured Comments Sex Male Smoking Status No Information Chief Complaint And Reason For Visit No Information Reason For Referral Reason For Referral No Information History Of Present Illness Encounter Date Complaint History Of Prese nt Illness No Information Functional Status Date Functional Assessmen t No Information Instructions Date Instruction Additional Infor mation No Information Assessments Type Assessment Date No Information Patient Care Teams Name Effective Dates (start - stop) Status Members No Information
[2025-03-21 15:27] VITALS: BMI 24.3
--- NOTE | 2025-03-21 15:52 | PC.NURSE ---
Report to the Outpatient Waiting Room, entrance under the green pavilion located off [facility], at time __6:30AM___ on date __03/31/25___. Planned Procedure Time: __8:30AM____.? Time changes happen often and if your time is changed the preop area will call you the afternoon before. - You and your visitor will be asked to self-screen and do not enter if you have any COVID symptoms. Please call surgeon if you need to reschedule. - A mask is optional within the hospital at this time. Patients may have clear liquids (water, carbonated beverages, clear teas, apple juice) until 3 hours prior to surgery (5:30AM) with a maximum of 20 ounces. - No food from midnight until time of surgery and no smoking, or chewing tobacco (or any form of nicotine). No chewing gum, candy or mints. Take only the following medications with a SIP of water on the morning of surgery: NONE DO NOT STOP ANY OF YOUR OTHER PRESCRIPTION MEDICATIONS PRIOR TO SURGERY EXCEPT THE FOLLOWING Hold all vitamins and supplements for 3 days per anesthesiologist. Medications to discontinue per physician ___HOLD ELIQUIS PER DR NICOLE- PATIENT CALLING OFFICE TO CONFIRM Date to take last dose Please no make-up, nail indonesian, hairspray, perfume, deodorant, or body powder the day of surgery.? No jewelry (including any body piercings) or valuables the day of surgery, leave them at home.? Please take a shower or bath the night before, or the morning of, surgery with an antibacterial soap.? Wear comfortable, loose fitting clothing.? - Jewelry must be removed prior to entering the operating room.? Rings and piercings that are not removed may be cut off. - The hospital will not accept responsibility for valuables.? - Please leave all valuables, including medications, at home the day of surgery. If you are going home after surgery, a licensed transfer driver must drive you home.? - NO public transportation without another adult if you receive anesthesia. - We recommend that an adult stay with you for 24 hours following discharge. - We also recommend that you do not drive, make important decision, drink alcoholic beverages, or take any drugs that were not prescribed by your health care provider for at least 24 hours after your discharge time. Follow any additional instructions given to you from your surgeon. Telephone instructions given to ____PATIENT and asked if any additional questions and then verbalized understanding. Patient advised to call surgeon office or pre surgery nurse liaison [phone] if any additional questions.
[2025-03-31] VITALS (7 sets, daily range): BP systolic 123–154; BP diastolic 81–95; PULSE 67–80; RESP 12–18; TEMP 36.2–36.4; O2SAT 98–99
--- OUTSIDE RECORDS SUMMARY | 2025-03-31 01:34 | XMS_ITS | Clinical Summary ---
Author Organization [facility] [employer] Address [address] [facility] [place] [address] Care Team Providers Care Home Care Physical Therapist Name Role Phone Siva Chacon MD Primary Care Provider [phone] Source Comments [facility] [employer],non-owned Affiliates and Associated Physician Practices is amultiple site organization consisting of ambulatory clinics and hospital sitesin [place], [place], [place] and [place]. This disclosure is being madepursuant to the Care Everywhere program and may not contain all information available regarding this patient. 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 Gender Identity Not on file Sexual Orientation Not on file Last Filed Vital Signs Vital Sign [place] Time Taken Comments Blood Pressure 116/76 08/28/2021 12:44 PM FORGE HELPER Pulse 72 08/28/2021 12:44 PM FORGE HELPER Temperature 36.8 C (98.3 F) 08/28/2021 12:44 PM FORGE HELPER Respiratory Rate - - Oxygen Saturation - - Inhaled Oxygen Concentration - - Weight 87.5 kg (193 lb) 08/28/2021 12:44 PM FORGE HELPER Height 188 cm (6' 2) 08/28/2021 12:44 PM FORGE HELPER Body Mass Index 24.78 08/28/2021 12:44 PM FORGE HELPER Plan of Treatment Health Maintenance Due Date [...] 2007 ZOSTER VACCINE (1 of 2) 2007 DEPRESSION SCREENING 07/06/2024 COVID-19 VACCINE (3 - season) 2025 10/18/2020, 09/20/2020 INFLUENZA VACCINE (#1) 2025 7, 04/05/2013, 05/15/2005, [...] to complete this topic Insurance Care Teams Home Care Physical Therapist Relationship Specialty Start Date End Date Siva Chacon MD [address] [place] [address] PCP - General 08/10/20
--- OUTSIDE RECORDS SUMMARY | 2025-03-31 01:34 | XMS_ITS | Encounter Summary ---
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
--- OUTSIDE RECORDS SUMMARY | 2025-03-31 01:34 | XMS_ITS | Clinical Summary ---
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 Gender Identity Not on file Sexual Orientation Not on file Last Filed Vital Signs Vital Sign [place] Time Taken Comments Blood Pressure 142/90 08/12/2021 11:26 PM TECHNICAL SALES SPECIALIST Pulse 63 08/12/2021 11:26 PM TECHNICAL SALES SPECIALIST Temperature 36.4 C (97.6 F) 08/12/2021 7:47 PM TECHNICAL SALES SPECIALIST Respiratory Rate 20 08/12/2021 11:26 PM TECHNICAL SALES SPECIALIST Oxygen Saturation 95% 08/12/2021 11:26 PM TECHNICAL SALES SPECIALIST Inhaled Oxygen Concentration - - Weight 89.1 kg (196 lb 6.9 oz) 08/12/2021 7:47 P M TECHNICAL SALES SPECIALIST Height 188 cm (6' 2) 08/12/2021 7:47 PM TECHNICAL SALES SPECIALIST Body Mass Index 25.22 08/12/2021 7:47 PM TECHNICAL SALES SPECIALIST Plan of Treatment Health Maintenance Due Date Last Done Comments Colon Cancer Screening-Colonoscopy 1957 Depression Screening 1957 Fall Risk Assessment 1957 Hepatitis C Screening 1957 Prostate Cancer Screening-PSA 1957 Hepatitis B Screening 1975 Pneumococcal vaccine 65+ (1 of 1 - PCV) 2007 Zoster Vaccine (1 of 2) 2007 Abdominal Aortic Aneurysm (AAA) Screen 2022 Well Visit 65+ 2022 Covid-19 Vaccine (2 - season) 03/06/202512/2021 Influenza Vaccine (#1) 2025 DTaP/Tdap/Td Vaccine (3 [...] Last Indicated COVID19 10/21/2020 10/20/2020 Insurance MEDICARE [facility] LIFE Care Teams Braider Tender Relationship Specialty Start Date End Date Siva Chacon MD PCP - General 10/21/20
--- OUTSIDE RECORDS SUMMARY | 2025-03-31 01:34 | XMS_ITS | Clinical Summary ---
Author Organization [facility] Address [address] [place] [address] Care Team Providers Care Rn Admission Name Role Phone Siva Chacon MD Primary Care Provider [phone] Allergies Active Allergy Reactions Criticality Noted Date Comments Cephradine Unknown 05/21/2001 Medications finasteride 5 MG tablet Take 5 mg by mouth daily. Active fluticasone propionate (FLONASE) 50 MCG/ACT nasal spray 1 spray by Nasal route daily. 16 g 08/06/2019 Active diclofenac EC 75 MG tabletIndication s:Closed avulsion fracture of distal fibula,Sprain of right ankle, unspecified ligament, initial encounter Take 1 tablet (75 mg total) by mouth 2 (two) times daily as needed (Pain. Please take with meals). 30 tablet 09/23/2021 Active HYDROcodone-acet aminophen 5-325 MG tabletIndication s:Acute Pain < 3 Day Supply Take 1 tablet by mouth every 6 (six) hours as needed for Pain. Indications : Acute Pain < 3 Day Supply 7 tablet 09/23/2021 Active apixaban (ELIQUIS) 5 MG tablet Take 1 tablet (5 mg total) by mouth 2 (two) times daily. 01/18/2025 Active loratadine (CLARITIN) 10 MG tablet Take 1 tablet (10 mg total) by mouth daily. Active metFORMIN ER (GLUCOPHAGE-XR) 500 MG 24 hr tablet Take 1 tablet (500 mg total) by mouth daily. Active sertraline (ZOLOFT) 25 MG tablet Take 1 tablet (25 mg total) by mouth daily. 07/12/2024 Active rosuvastatin (CRESTOR) 20 MG tablet Take 1 tablet (20 mg total) by mouth. Active Encounters Date Type Department Care Team Description 01/19/2025 3:58 PM CDT - 01/19/2025 4:57 PM CDT Emergency [facility] Emergency Room [id number] [place] [address] Erica Varghese MD Eye Pain Discharge Disposition: Home or Self Care (Routine Discharge) 01/19/2025 Travel from Last 3 Months Family History Medical History Relation Comments None Father None Mother Relation Status Comments Father Mother Social History Tobacco Use Types Packs/Day Years Used Date Smoking Tobacco: Never Smokeless Tobacco: Never Alcohol Use Standard Drinks/Week Comments Yes 23.3 (1 standard drink = 0.6 oz pure alcohol) SOCIAL Sex and Gender Information Value Date Recorded Sex Assigned at Male 09/22/2024 2:48 PM CDT Legal Sex Male 7:03 PM CDT Gender Identity Not on file Sexual Orientation Not on file Last Filed Vital Signs Vital Sign [place] Time Taken Comments Blood Pressure 134/88 01/19/2025 4:47 PM CDT Pulse 61 01/19/2025 4:47 PM CDT Temperature 36.6 C (97.8 F) 01/19/2025 4:47 PM CDT Respiratory Rate 17 01/19/2025 4:47 PM CDT Oxygen Saturation 98% 01/19/2025 4:47 PM CDT Inhaled Oxygen Concentration - - Weight 89.4 kg (197 lb) 01/19/2025 4:04 PM CDT Height 188 cm (6' 2) 01/19/2025 4:04 PM CDT Body Mass Index 25.29 01/19/2025 4:04 PM CDT Plan of Treatment Health Maintenance Due Date Last Done Comments Colorectal Cancer Screening Colonoscopy (10 Years) 1957 Hepatitis C 1975 Pneumococcal Vaccine: 50+ Years (1 of 1 - PCV) 2007 Zoster Vaccines (1 of 2) 2007 Annual Medicare Wellness Visit 2022 COVID-19 Vaccine (4 - 2024-2 6 season) 2025 07/11/2021, 10/18/2020, 09/20/2020 DTaP, Tdap and Td Vaccines ( 3 - Td or Tdap) 10/21/2030 10/21/2020, 10/14/2014, 06/23/1998 RSV Immunization or 60+ Years (1 - 1-dose 75+ series) 02/04/2032 Meningococcal Vaccine Aged Out 06/23/1998 No fuad keegan eligible based on patient's age to complete this topic Meningococcal B Vaccine Aged Out No l onger eligible based on patient's age to complete this topic RSV Immunizations Under 20 Months Aged Out No longer eligible b ased on patient's age to complete this topic Insurance MEDICARE [facility] [employer] Care Teams Rn Admission Relationship Specialty Start Date End Date Siva Chacon MD [address] [address] PCP - General 10/05/16
--- OUTSIDE RECORDS SUMMARY | 2025-03-31 01:35 | XMS_ITS | Clinical Summary ---
Author Organization [facility] [address] 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 Active rosuvastatin (CRESTOR) [...] 2 times daily. 60 Tablet 5 Active empagliflozin (Jardiance) 10 mg tablet Take 10 mg by mouth daily in the morning. Active Active Problems Problem Noted Date Diagnosed Date Type 2 diabetes mellitus wit hout complication, without long-term current use of insulin 07/29/2024 Essential hypertension 07/29/2024 Atrial tachycardia 03/13/2020 PAC (premature atrial contraction) 03/13/2020 Pure hypercholesterolemia 03/13/2020 Encounters Date Type Department Care Team Description 03/22/2025 Telephone [facility] (Former[facility])[3] Heart and Vascular - [address] [facility] [address] [address] [facility] [address] [place] [address] Rossy Carbone MD cardiac clearance 03/21/2025 External Device Data STL ABSTRACTION Provider, Abstract 02/21/2025 External Device Data STL ABSTRACTION Provider, Abstract 02/16/2025 10:00 AM CDT Office Visit [facility] ([facility])[3] Heart and Vascular - [address] [facility] [address] [id number] [facility] [address] [place] [address] Sarah Landeros NP 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 ([facility]) (Primary Dx); 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; Encounter for long-term (current) use of medications; S/P ablation of atrial fibrillation 02/14/2025 External Device Data STL ABSTRACTION Provider, Abstract 01/18/2025 External Device Data STL ABSTRACTION Provider, Abstract 01/18/2025 Orders Only [facility] ([facility]3] Heart and Vascular - [address] [facility] [address] [address] [facility] [address] [place] [address] Marija Khanna PAF (paroxysmal atrial fibrillation) ([facility]); PAC (premature atrial contraction); Atrial tachycardia 01/17/2025 External Device Data STL ABSTRACTION Provider, Abstract 01/09/2025 Refill [facility] ([facility]3] Heart and Vascular - [address] [facility] [address] [address] [facility] [address] [place] [address] Rossy Carbone MD PAF (paroxysmal atrial fibrillation) ([facility]); PAC (premature atrial contraction); Atrial tachycardia from Last 3 Months Social History Tobacco Use Types Packs/Day Years Used Date Smoking Tobacco: Never Smokeless Tobacco: Never Tobacco Cessation:Counseling Given: Not Answered Alcohol Use Standard Drinks/Week Comments Yes 1 (1 standard drink = 0.6 oz pur e alcohol) Feeling Safe Answer Date Recorded Are you in a relationship wi th someone who hurts you emotionally and/or physically? No 11/04/2024 Food Insecurity Answer Date Recorded Patient needs follow up regardin 11/04/2024 Transportation Needs Answer Date Record ed Patient needs follow up regardin 11/04/2024 Utility Needs Answer Date Recorded Patient needs follow up regardin 11/04/2024 Sex and Gender Information Value Date Recorded Sex Assigned at Not on file Legal Sex Male 9:36 AM CDT Gender Identity Not on file Sexual Orientation Not on file Last Filed Vital Signs Vital Sign Reading Time Taken Comments Blood Pressure 110/80 02/16/2025 9:50 AM CDT Pulse 58 02/16/2025 9:50 AM CDT Temperature 36.7 C (98 F) 11/04/2024 2:57 PM CDT Respiratory Rate 17 11/04/2024 4:30 PM CDT Oxygen Saturation 98% 12/16/2024 9:59 AM CDT Inhaled Oxygen Concentration - - Weight 88 kg (194 lb) 02/16/2025 9:50 AM CDT Height 188 cm (6' 2) 02/16/2025 9:50 AM CDT Body Mass Index 24.91 02/16/2025 9:50 AM CDT Plan of Treatment Upcoming Encounters Date Type Department Care Team (Late st Contact Info) Description 05/05/2025 4:00 PM CDT Office Visit [facility] ([facility]3] Heart and Vascular - [address] [facility] [address] [address] [facility] [address] [place] [phone] [place] [id number] 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 Office Visit [facility] ([facility]3] Heart and Vascular Electrophysiology - [address] [facility] [address] [address] [facility] [address] [place] [phone] [place] [address] [facility] [address] [place] [phone] Health Maintenance Due Date Last Done Comments [...] 2002 ZOSTER VACCINE (1 of 2) 2007 RSV VACCINE (60+ or ) (1 - Risk 60-74 years 1-dose series) 2017 DIABETES ANNUAL RETINAL EXAM 03/11/2023 03/11/2022 INFLUENZA VACCINE (#1) 2025 04/17/2017, 2012 COVID-19 Vaccine (3 - 2024-2 6 season) 2025 10/18/2020, 09/20/2020 DIABETES HBA1C Q 6 MONTHS 04/19/20252024, 07/18/2024, 04/13/2024, Additional history exists Medical Devices Implanted Type Area Cad Draftsman Device Identifier Shelf Expiration Date Model / Serial / Lot Dev Cardiva Vascade Mvp Xl Vvcs 10-12fr [id number] - [id number] Implanted:Qty : 1 on 11/04/2024 by Tal Tavarez MD at [facility] Closure Device Right: [employer] [id number] 06/16/2026 [id number] L / / [id number] Procedures Procedure Name Priority Date/Time Associated Diagnosis Comments CO ECG ROUTINE ECG W/LEAST 12 LDS W/I&R Routine 02/16/2025 10:00 AM CDT 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 (CMS/HCC) 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 He is followed by Dr. Carbone.His most recent echocardiogram 04/15/21 revealed normal LVEF. He is a nonsmoker, drinks 1-2 drinks a da y. Exercises frequently. Arrhythmia Specific History: Atrial fibrillation Found to have atrial fibrillation in 2019 after he had COVID infection. Started on Multaq and Eliquis. Had breakthrough atrial fibrillation documented by event monitor 2024 while on Multaq. S/p PVI with CTI 11/04/24. Multaq was resumed post procedure. Interval history 02/16/25: Tommy was seen today for follow up. His EKG today reveals SR with a rate of58. He denies chest pain or SOB. He ran out of Multaq about a month agoand noted increased palpitations. He is back on BID dosing of Multaq. Heremains active. Past Medical History: Diagnosis Date Diabetes (CMS/HCC) HTN (hypertension) Hyperlipidemia No family history on file. Social History Socioeconomic History Marital status: Spouse name: Not on file Number of children: Not on file Years of education: Not on file Highest education level: Not on file Occupational History Not on file Tobacco Use Smoking status: Never Smokeless tobacco: Never Vaping Use Vaping status: Never Used Substance and Sexual Activity Alcohol use: Yes Alcohol/week: 1.0 - 2.0 standard drink of alcohol Types: 1 - 2 Cans of beer per week Drug use: Never Sexual activity: Not on file Other Topics Concern Not on file Social History Narrative Not on file Social Drivers of Health Food Insecurity: Not on file (11/04/2024) Transportation Needs: No Transportation Needs (11/04/2024) Transportation Needs Patient needs follow up regarding:: 1 Feeling Safe: Not At Risk (11/04/2024) Feeling Safe Patient has indicated abuse: : No Housing Stability: Not on file Outpatient Medications Marked as Taking for the 02/16/25 encounter (OfficeVisit) with Sarah Landeros NP Medication Sig Dispense Refill empagliflozin (Jardiance) 10 mg tablet Take 10 mg by mouth daily in themorning. apixaban (Eliquis) 5 mg tablet Take 1 Tablet (5 mg) by mouth 2 timesdaily. 60 Tablet 0 sertraline (ZOLOFT) 25 mg tablet Take 1 Tablet by mouth daily. pantoprazole (PROTONIX) 20 mg Tablet, Delayed Release (E.C.) glucagon (Gvoke PFS 1-Pack Syringe) 1 mg/0.2 mL Syringe 1 Syringe by NOTAPPLICABLE route. loratadine (CLARITIN) 10 mg tablet Take 10 mg by mouth daily. finasteride (PROPECIA) 1 mg Tablet Take 1 mg by mouth daily. rosuvastatin (CRESTOR) 20 mg tablet Take 20 mg by mouth daily at bedtime. Additional Review of Systems: All other systems reviewed and found negative. CV: No chest pain, dyspnea at rest Lungs: No hemoptysis, no cough GI: No nausea, emesis, melena : No hematuria, dysuria Objective: Blood pressure 110/80, pulse (!) 58, height 6' 2 (1.88 m), weight 88 kg(194 lb). HEENT: Atraumatic, normocephalic, pupils equal BL Neck: No jugular venous distention, no audible carotid bruits, no palpablethyroid masses Lungs: Clear to auscultation bilaterally CV: Regular rate and rhythm, I/ HSM at LLSB, no palpable heave orthrill, no rub Abd; soft, non-tender, non-distended, bowel sounds present, no grossorganomegaly Ext: No cyanosis or clubbing; no sig edema Neuro: No gross focal motor defecits Gen: Alert and oriented x 3, no acute distress Cardiac Studies EKG: EKG Date/Time: 02/16/2025 10:00 AM Performed by: Tal Tavarez MD Authorized by: Tal Tavarez MD Results for orders placed or performed during the hospital encounter of04/15/21 ECHO COMPLETE Result Value Ref Range EJECTION FRACTION EF: Narrative -- [facility] -- Transthoracic Echocardiography -- Patient: Tommy Reynolds Study ID:[id number] Gender: M :1955 Age: 66 Race: ANI Height 188cm Study Date:04/15/2021 Weight: 84.9kg Access. #:[id number] BP: 129 / 78 -- -- *Referring Physician:Franky Pollack Aaron *Ordering Physician:Franky Pollack Surgical Appliance Fitter: evgeny casing soaker: Nurse: -- Indications: Atrial fibrillation. PAC. Tachycardia. STUDY CONCLUSIONS: SUMMARY: -- - Study data: Comparison was made to the study of 03/27/2020. - Left ventricle: The cavity size was normal. Wall thickness was normal. Global systolic function was normal. The estimated ejection fraction wasin the range of 60% to 65%. - Mitral valve: Mild regurgitation. - Left atrium: The atrium was mildly dilated. - Right ventricle: The cavity size was normal. Systolic function wasnormal. - Pulmonic valve: Trivial regurgitation. -- Impressions: Compared to the prior study, there has been no significant interval change. Cardiac Anatomy: LEFT VENTRICLE: The cavity size was normal. Wall thickness was normal.Global systolic function was normal. The estimated ejection fraction was in therange of 60% to 65%. Wall motion was normal; there were no regional wallmotion abnormalities. Wall motion score: 1.00. AORTIC VALVE: Structurally normal valve. Trileaflet. Doppler: No significant regurgitation. The LVOT to aortic valve VTI ratio is 0.88.The valve area by the velocity-time integral method is 3.7cm^2. The valvearea index by the velocity-time integral method is 1.73cm^2/m^2. The ratio ofLVOT to aortic valve peak velocity is 0.86. The valve area by the peakvelocity method is 3.6cm^2. The valve area index by the peak velocity method is 1.69cm^2/m^2. The mean systolic gradient is 3mm Hg. The peak systolic gradient is 5mm Hg. AORTA: Aortic root: The aortic root was normal in size. MITRAL VALVE: Structurally normal valve. Doppler: Mildregurgitation. The valve area by pressure half-time is 3.2cm^2. The valve area indexby pressure half-time is 1.51cm^2/m^2. The mean diastolic gradient is 0mmHg. The peak diastolic gradient is 1mm Hg. LEFT ATRIUM: The atrium was mildly dilated. RIGHT VENTRICLE: The cavity size was normal. Systolic function wasnormal. PULMONIC VALVE: Structurally normal valve. Doppler: Trivial regurgitation. The peak systolic gradient is 3mm Hg. TRICUSPID VALVE: Structurally normal valve. Doppler: Trivial regurgitation. RIGHT ATRIUM: The atrium was normal in size. PERICARDIUM: There was no pericardial effusion. Systemic veins: Inferior vena cava: The vessel was normal in size. Measurements -- -- Left ventricle Value 03/27/2020 Ref KIERSTEN, LAX (L) 3.3 cm 4.2 - 5.8 KIERSTEN/bsa, LAX (L) 1.6 cm/m^2 2.2 - 3.0 KIERSTEN, LAX chord (N) 4.9 cm 4.8 4.2 - 5.8 ESD, LAX chord (N) 3.3 cm 3.1 2.5 - 4.0 PW, ED (N) 0.8 cm 0.8 0.6 - 1.0 PW, ES 1.6 cm 1.5 -------- SV 80 ml 77 -------- SV/bsa 38 ml/m^2 36 -------- EDV, 2-p (N) 109 ml 101 62 - 150 ESV, 2-p (N) 40 ml 37 21 - 61 EF, 2-p (N) 63 % 63 52 - 72 SV, 2-p 69 ml -------- EDV/bsa, 2-p (N) 52 ml/m^2 47 34 - 74 ESV/bsa, 2-p (N) 19 ml/m^2 17 11 - 31 SV/bsa, 2-p 32.7 ml/m^2 -------- E', med nikko, (N) 7.4 cm/sec 8.4 >=7.0 TDI E/e', med nikko, 7 8 -------- TDI LVOT Value 03/27/2020 Ref Diam, S 2.3 cm 2.2 -------- Area 4.2 cm^2 3.8 -------- Peak buzz, S 0.97 m/sec 1.01 -------- VTI, S 19.3 cm -------- Ventricular septum Value 03/27/2020 Ref IVS, ED (N) 0.8 cm 0.9 0.6 - 1.0 Right ventricle Value 03/27/2020 Ref KIERSTEN minor ax, (N) 3.6 cm 3.8 2.5 - A4C base 4.1 KIESRTEN minor ax, (H) 3.9 cm 2.6 1.9 - A4C mid 3.5 KIERSTEN major ax, (N) 7.1 cm 6.8 5.9 - A4C 8.3 TAPSE, MM (N) 2.3 cm 2.0 1.7 - 3.1 S' lateral (N) 8.7 cm/sec 11.4 6.0 - 13.4 Left atrium Value 03/27/2020 Ref AP dim, ES (N) 4.0 cm 4.1 3.0 - 4.0 AP dim index (N) 1.9 cm/m^2 1.9 1.5 - 2.3 Vol, ES, 2-p 73 ml 64 -------- Vol/bsa, ES, (H) 35 ml/m^2 30 16 - 34 2-p Right atrium Value 03/27/2020 Ref Area, ES, A4C (N) 14 cm^2 14 10 - 18 Vol, ES, 1-p 31 ml 30 -------- A4C Vol/bsa, ES, (N) 14 ml/m^2 14 11 - 39 1-p A4C Aortic valve Value 03/27/2020 Ref Peak v, S 1.1 m/sec 1.2 -------- VTI, S 21.9 cm -------- Mean grad, S 3 mm Hg 3 -------- Peak grad, S 5 mm Hg 6 -------- LVOT/AV, VTI 0.88 -------- ratio JAVON, VTI 3.7 cm^2 3.1 -------- JAVON/bsa, VTI 1.73 cm^2/m^2 1.42 -------- Mitral valve Value 03/27/2020 Ref Peak E 0.5 m/sec 0.65 -------- Peak A 0.42 m/sec 0.38 -------- PHT 69 ms -------- Peak E/A ratio 1.2 1.7 -------- MVA, PHT 3.2 cm^2 -------- MVA/bsa, PHT 1.51 cm^2/m^2 -------- Pulmonic valve Value 03/27/2020 Ref Peak v, S 0.83 m/sec 1.03 -------- Peak grad, S 3 mm Hg 4 -------- Aortic root Value 03/27/2020 Ref Root diam, S 3.6 cm 3.0 -------- Ascending aorta Value 03/27/2020 Ref AAo AP diam, S 3.0 cm 2.9 -------- AAo AP 1.4 cm/m^2 1.3 -------- diam/bsa, S -- -- Legend: (L) and (H) kimberlyn values outside specified reference range. (N) elizondo values inside specified reference range. Procedure data: MCHOD Comparison was made to the study of 03/27/2020. Procedureinformation: Transthoracic echocardiography. Image quality was adequate. Scanning was performed from the parasternal, apical, and subcostal acoustic windows. Transthoracic echocardiography. Complete 2D, complete spectral Doppler,and color Doppler. Birthdate: Patient birthdate: 1955. Age: Patientis 66yr old. Sex: gender: male. Height: 188cm. 74in. Weight:84.9kg. 186.8lb. Body mass index: 24kg/m^2. Body surface area: 2.11m^2.Blood pressure: 129/78 Patient status: Outpatient. Study date: Studydate: 04/15/2021. Study time: 03:23 PM. Prepared and Electronically Authenticated Josué Lu M.D. [id number] CHADS2-vasc: 3 [id number] Moderate-High Risk 3 Total Score 1 Hypertension Hx 1 Diabetes Hx 1 Age Assessment: Assessment: ICD-10-CM ICD-9-CM 1. 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 ([facility]) I48.0 427.31 2. 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 Encounter for long-term (current) use of medications Z79.899 V58.69 4. S/P ablation of atrial fibrillation Z98.890 V45.89 Z86.79 Plan: Paroxsymal atrial fibrillation- S/p PVI 11/04/24. He is in SR and denieschest pain or SOB. He remains active. He will decrease Multaq to oncedaily for two weeks and then stop if doing well. I asked him to check aKardia strip is he has recurrent palpitations. Could also consider aHolter or event monitor. Multaq is quite expensive for him. He has aChadsVasc score of 3 and will continue Eliquis. He denies bleeding issues.He will return for follow up in [address] was present in the suite at time of visit ascollaborating/overseeing provider. us Tal Tavarez MD ECG ORDERABLES Final Result from Last 3 Months Insurance MEDICARE PART A AND B [employer] Care Teams Wash Oil Cooler Operator Relationship Specialty Start Date End Date Yara Nguyen PA-C [address] [place] [address] PCP - General Physician Geotechnical Engineering Technician 02/17/20
[2025-03-31] MEDS: ACETAMINOPHEN 500 MG TABLET 1000 MG PO (06:55)
[2025-03-31] MEDS: OXYMETAZOLINE HCL 0.05% NAS 15 ML BTL (*BKC) 2 SPRAY NASAL ×3 (06:57→07:07)
[2025-03-31] MEDS: LACTATED RINGERS 1,000 ML 30 ML IV CONT ×2 (07:00→12:05)
--- NOTE | 2025-03-31 07:17 | PM.IMHP ---
H&P: HPI History of Present Illness Date/Time: 03/31/25 07:17 Chief Complaint: 70-year-old male status post sinus surgery 20 years ago, with chronic sinusitis, deviated nasal septum and hypertrophy of nasal turbinates Review of Systems Review of Systems: All systems reviewed & are unremarkable except as noted in HPI and below Constitutional: Constitutional: Reports as per HPI ENT: Reports as per HPI Respiratory: Respiratory: Reports as per HPI Gastrointestinal: Gastrointestinal: Reports as per HPI [facility] Past Medical History Medical History Anterior epistaxis Chronic ethmoidal sinusitis Allergic rhinitis with postnasal drip Colon cancer screening Encounter for colorectal cancer screening COVID-19 New onset type 2 diabetes mellitus Surgical History Surgical History H/O cardiac radiofrequency ablation (~11/2024) History of detached retina repair Family History Family History Father Glaucoma Mother Dementia Hypertension Sibling No problems noted. Social History Social History Social History: Caffeine-tea/coffee Smoking status: Never smoker Second hand tobacco smoke exposure: Yes Alcohol intake: current Drinks per week: 12 Alcohol use details: BEERS Substance use: never Substance use type: does not use Lack of Transportation: No Lack of Food: Never True Current Housing: I Have Housing Concerned About Future Housing: No Difficulty Paying Gas/Electric Bills: No Difficulty Paying for Meds: No Currently Unemployed: No Education: Master's Degree or Higher Difficulty w/ Childcare or Family Care: No Living arrangements: with family Additional living arrangements comments: Occupation/Education: retired Additional occupation/education comments: [employer] Gender identity (if verbalized by the patient): Male Spiritual care concerns: No Meds Home Medications and Allergies Home Medications ?Medication ?Instructions ?Recorded ?Confirmed ?Type finasteride 1 mg tablet 1 mg PO DAILY 05/17/19 03/31/25 History lancets (Accu-Chek Softclix #100 ea 01/17/20 03/21/25 Rx Lancets) Accu-Chek Jackie Plus Meter #1 ea 01/20/20 03/21/25 Rx (blood-glucose meter) blood sugar diagnostic (FreeStyle #100 ea 07/16/20 03/21/25 Rx Lite Strips) apixaban 5 mg tablet (Eliquis) 5 mg PO BID 07/25/20 03/31/25 History glucagon 1 mg/0.2 mL subcutaneous 1 mg (0.2 mL) subcut Q20M PRN 07/25/20 03/21/25 Rx syringe hypoglycemia #0.2 mL sertraline 25 mg tablet (Zoloft) 25 mg PO DAILY #90 tabs 08/06/24 03/31/25 Rx rosuvastatin 20 mg tablet (Crestor) 20 mg PO DAILY #90 tabs 09/29/24 03/31/25 Rx empagliflozin 10 mg tablet 10 mg PO DAILY #90 tabs 02/14/25 03/31/25 Rx (Jardiance) dronedarone 400 mg tablet (Multaq) 400 mg PO HS 03/01/25 03/31/25 History loratadine 10 mg tablet 10 mg PO DAILY PRN allergy 03/01/25 03/21/25 Rx symptoms #90 tabs pantoprazole 20 mg tablet,delayed 20 mg PO QAM PRN indigestion 03/21/25 03/21/25 History release Allergies Allergy/AdvReac Type Severity Reaction Status Date / Time No Known Allergies Allergy Verified 03/31/25 06:50 Exam Const: General: cooperative, healthy appearing, comfortable, no acute distress, well developed, alert, awake and Physically active Orientation/consciousness: oriented to person, oriented to place, oriented to time and patient oriented x3 HENMT: Head: normocephalic and atraumatic Ears: external ears normal and EAC's normal Face/Nose/Sinus: Normal external nose present and Normal nares present Mouth: Yes Normal oral and palatal mucosa present, Yes lip normal and Yes tongue normal Other: deviated nasal spetum Eyes: General: appearance normal, both eyes and all related structures Neck: Neck: normal visual inspection, full ROM and trachea midline Resp: Effort & Inspection: normal respiratory effort and able to speak in complete sentences Cardio: Rate: regular rate Neuro: General: oriented to person, oriented to place, oriented to time and patient oriented x3 Assessment and Plan Assessment and plan (1) Chronic ethmoidal sinusitis: Code(s): J32.2 - Chronic ethmoidal sinusitis Status: Acute (2) Allergic rhinitis with postnasal drip: Code(s): J30.9 - Allergic rhinitis, unspecified; R09.82 - Postnasal drip Status: Acute Plan 70-year-old male status post sinus surgery 20 years ago, with chronic sinusitis, deviated nasal septum and hypertrophy of nasal turbinates I have personally reviewed the imaging study the patient performed and i agree with the report but I need to add but there is bilateral frontal, maxillary, sphenoid disease, posterior ethmoid mucosal disease disease I have also reviewed the imaging study with the patient CT sinuses 11/30/2024:There are surgical changes of the ostiomeatal units. There is mucosal thickening of the maxillary, ethmoid, sphenoid sinuses. No significant nasal septal deviation. Mastoids are pneumatized. A thorough discussion with the patient regarding his options which included surgery with this risk benefits and complication as well as continuing medical therapy The patient prefer to go ahead with surgery: Septoplasty Submucous resection of inferior turbinate, partial or complete, any method ,bilateral Fracture nasal inferior turbinate,bilateral maxillary antrostomy,bilateral Possible medial maxillectomy bilateral posterior ethmoidectomy,bilateral sphenoidotomy bilateral -Risk of septoplasty procedures were discussed with the patient which include but not limited to; Bleeding, infection, septal perforation, saddle nose deformity, intranasal scarring -Risks for sinus surgery: injury to the skull base, injury to the eye, need for further surgery. Risk of recurrent disease is also discussed. All the questions were answered to the best of my ability and the patient wished to proceed. The procedures will be scheduled in a timely fashion.
--- NOTE | 2025-03-31 07:20 | WPDHPUPDATE1 ---
History and Physical Update Update Date/Time: 03/31/25 07:20 History and Physical has been reviewed, including an updated exam of the patient. There are NO changes in the patient's condition. Risks, benefits, and alternatives have been discussed and questions answered. Patient agrees to proceed with procedure.
--- NOTE | 2025-03-31 07:47 | WPDANESEPPF ---
Anes - Initial Pre Proc Eval Procedure: Operation Date: 03/31/25 08:30 Proposed Procedures p Image Guided Bilateral Submucous Resection of Inferior Turbinates, Fracture Bilateral Nasal Inferior Turbinate, Bilateral Maxillary Antrostomy, Possible Bilateral Medial Maxillectomy, Bilateral Posterior Ethmoidectomy and Bilateral Sphenoidotomy - Didi Watts MD s Septoplasty - Didi Watts MD Date/Time: 03/31/25 07:47 Surgeon: Didi Watts MD Pre Op Diagnosis: chronic sinusitis, deviated septum Patient Data Age: 70 Gender: M Height: 1.88 m Weight: 86.3 kg Last Vital Signs Temp 36.4 C L 03/31/25 07:37 Pulse 67 03/31/25 07:37 Resp 18 03/31/25 07:37 BP 147/88 H 03/31/25 07:37 Pulse Ox 99 03/31/25 07:37 O2 Del Method Room Air 03/31/25 07:37 Allergies Allergy/AdvReac Type Severity Reaction Status Date / Time No Known Allergies Allergy Verified 03/31/25 06:50 Home Medications ?Medication ?Instructions ?Recorded ?Confirmed ?Type finasteride 1 mg tablet 1 mg PO DAILY 05/17/19 03/31/25 History lancets (Accu-Chek Softclix #100 ea 01/17/20 03/21/25 Rx Lancets) Accu-Chek Jackie Plus Meter #1 ea 01/20/20 03/21/25 Rx (blood-glucose meter) blood sugar diagnostic (FreeStyle #100 ea 07/16/20 03/21/25 Rx Lite Strips) apixaban 5 mg tablet (Eliquis) 5 mg PO BID 07/25/20 03/31/25 History glucagon 1 mg/0.2 mL subcutaneous 1 mg (0.2 mL) subcut Q20M PRN 07/25/20 03/21/25 Rx syringe hypoglycemia #0.2 mL sertraline 25 mg tablet (Zoloft) 25 mg PO DAILY #90 tabs 08/06/24 03/31/25 Rx rosuvastatin 20 mg tablet (Crestor) 20 mg PO DAILY #90 tabs 09/29/24 03/31/25 Rx empagliflozin 10 mg tablet 10 mg PO DAILY #90 tabs 02/14/25 03/31/25 Rx (Jardiance) dronedarone 400 mg tablet (Multaq) 400 mg PO HS 03/01/25 03/31/25 History loratadine 10 mg tablet 10 mg PO DAILY PRN allergy 03/01/25 03/21/25 Rx symptoms #90 tabs pantoprazole 20 mg tablet,delayed 20 mg PO QAM PRN indigestion 03/21/25 03/21/25 History release Laboratory Tests 03/31/25 07:06 POC Capillary Glucose 131 H mg/dl (65-105) Patient hx anesthesia problems: none Family hx anesthesia problems: none Results Review: All pre-operative results and documents have been reviewed as part of the pre-operative evaluation. [facility] Past Medical History Medical History Anterior epistaxis Chronic ethmoidal sinusitis Allergic rhinitis with postnasal drip Colon cancer screening Encounter for colorectal cancer screening COVID-19 New onset type 2 diabetes mellitus Surgical History Surgical History H/O cardiac radiofrequency ablation (~11/2024) History of detached retina repair Family History Family History Father Glaucoma Mother Dementia Hypertension Sibling No problems noted. Social History Social History Social History: Caffeine-tea/coffee Smoking status: Never smoker Second hand tobacco smoke exposure: Yes Alcohol intake: current Drinks per week: 12 Alcohol use details: BEERS Substance use: never Substance use type: does not use Lack of Transportation: No Lack of Food: Never True Current Housing: I Have Housing Concerned About Future Housing: No Difficulty Paying Gas/Electric Bills: No Difficulty Paying for Meds: No Currently Unemployed: No Education: Master's Degree or Higher Difficulty w/ Childcare or Family Care: No Living arrangements: with family Additional living arrangements comments: Occupation/Education: retired Additional occupation/education comments: [employer] Gender identity (if verbalized by the patient): Male Spiritual care concerns: No Anes - Eval Final PreProcedure Day of Procedure 03/31/25 07:47 Patient weight: normal Heart: regular rate and rhythm Lungs: clear to auscultation Airway: Mallampati scale class II Neurological: alert and oriented Last oral intake: >/= 8 hours ASA classification: II Emergent: no Anesthetic plan: proceed Anesthesia type and monitoring: general ETT and standard monitoring Results Review: All pre-operative results and documents have been reviewed as part of the pre-operative evaluation. Informed Consent: The patient's anesthetic plan and its attendant risks and benefits were discussed with the patient/family/POA. Questions were solicited and answers provided to the satisfaction of the patient/family/POA.
[2025-03-31] MEDS: dexAMETHasone SOD PHOS INJ 10 MG/ML 1 ML VIAL IV PUSH (08:07)
--- NOTE | 2025-03-31 09:04 | P.OP_ITS ---
Procedure Note - Detailed Date of Procedure 03/31/25 Pre-op Diagnosis chronic sinusitis, deviated septum Post-op Diagnosis Same Procedure Performed ? Nasal endoscopy with maxillary antrostomy bilaterally. ? Nasal endoscopy with posterior ethmoidectomy bilaterally. ? Nasal endoscopy with frontal sinuotomy with balloon dilation bilaterally ? Nasal endoscopy with sphenoidotomy bilaterally. ? Therapeutic fracture of the inferior turbinates bilaterally. ? Bilateral inferior turbinate submucous reduction Surgeon Didi Watts MD Anesthesia General Description of Procedure The patient was seen in the preoperative area, informed consent was checked and confirmed. The patient was taken to the operating room, sedated and placed under general anesthesia with an endotracheal tube . Eyes were taped and were prepped and draped in the usual sterile fashion. We proceeded to the endoscopic sinus procedure starting on the right side. The agger nasi area was injected with 1% lidocaine with 1:100,000 epinephrine. The body of the middle turbinate was injected with 1% lidocaine with 1:100,000 epinephrine. The middle turbinate was gently medialized . Maxillary antrum was re-examined with a 30-degree scope. A ball probe was passed into the antrum and was further widened with a backbiter in the posterior-inferior aspect.right posterior ethmoidectomy was done through the inferio-medial quadrant of basal lamella. posterior ethmoid cells were removed from anterior to posterior direction and from inferior to superior taking care to preserve skull base and lamina papyracea.then ,lateralization of the middle turbinate and shaving,opening of the posterior corridor and shaving the posterior part of the middle turbinate to widen the superior meatus . Right side sphenoidotomy was done by identifying the left sphenoid ostium ,the lower third of the superior turbinate was resected to expose the left sphenoid ostium,the ostium was enlarged inferiorly and laterally . Agger Nasi cells on left were opened with the shaver and 30-degree scope. Frontal sinus ostium was identified with navigated balloon . Then the balloon was passed into the frontal sinus and the ostia was adequately dilated. Shaver was used to debride excess tissue to clear the frontal recess. and i proceeded to the left side : The agger nasi area was injected with 1% lidocaine with 1:100,000 epinephrine. The body of the middle turbinate was injected with 1% lidocaine with 1:100,000 epinephrine. The middle turbinate was gently medialized and the uncinectomy was performed with a pediatric Ruth backbiter and the uncinectomy was completed with a shaver from the inferior-posterior attachment to the superior anterior attachment. Maxillary antrum was re-examined with a 30-degree scope. A ball probe was passed into the antrum and was further widened with a backbiter in the anterior- posterior aspect. left posterior ethmoidectomy was done through the inferio-medial quadrant of basal lamella ,posterior ethmoid cells were removed from anterior to posterior direction and from inferior to superior taking care to preserve skull base and lamina papyracea.then ,lateralization of the middle turbinate and shaving,opening of the posterior corridor and shaving the posterior part of the middle turbinate to widen the superior meatus . left side sphenoidotomy was done by identifying the left sphenoid ostium ,the lower third of the superior turbinate was resected to expose the left sphenoid ostium,the ostium was enlarged inferiorly and laterally Agger Nasi cells on left were opened with the shaver and 30-degree scope. Frontal sinus ostium was identified with navigated balloon . Then the balloon was passed into the frontal sinus and the ostia was adequately dilated. Shaver was used to debride excess tissue to clear the frontal recess. We proceeded with submucosal inferior turbinate reduction, starting on the right side, a stab incision was made anterior mucosa of inferior turbinate. Submucosal pocket was created along the length of the inferior turbinate and the microdebrider blade 2mm thick was introduced anteriorly and into the whole submucosal pocket. Microdebrider was then used to remove the hypertrophied bony parts of anterior turbinate head and soft tissue with the outer layer intact. The residual inferior turbinate was then out fractured using Boies elevator. We proceeded to the left side. A stab incision was made on the anterior mucosa of inferior turbinate. Submucosal pocket was created along the length of the inferior turbinate and the microdebrider blade 2 mm thick was introduced anteriorly and into the whole submucosal pocket. Microdebrider was then used to remove the hypertrophied bony parts of anterior turbinate head and soft tissue with the outer layer intact. The residual inferior turbinate was then out fractured using Boies elevator. Pledgets were removed from ethmoid cavities, PosiSep X BAM Hemostat Dressing sponges were placed in ethmoid cavities bilaterally and infiltrated with a mixture of kenalog and cefazolin. The nose was then suctioned clean and at this point the care of the patient was then transferred to the anesthesiologist where the patient emerged from general anesthesia without complication. Estimated Blood Loss 10 (ml) Drains No Packing No Complications No immediate complications Condition Stable Disposition PACU [facility] Billing Surgery - Charge Forward: Surgery Billing
[2025-03-31] MEDS: ceFAZolin 2 GM in SODIUM CHLORIDE 0.9% IV 50 ML 100 ML IVPB (09:29)
[2025-03-31] MEDS: TRANEXAMIC ACID 1,000MG/ISO100 1,000 MG/100 ML BAG 200 MG IVPB (09:35)
[2025-03-31] MEDS: COCAINE HCL (*CRX) 4% TOP SOLN 4 ML VIAL 1 APPLIC TOPICAL (09:56)
[2025-03-31] MEDS: TRIAMCINOLONE ACET INJ 40 MG/ML VIAL XX (09:59)
[2025-03-31] MEDS: methylPREDNISolone ACETATE 40 MG/ML VIAL 20 MG IM (12:53)
== END 2025-03-31 13:51 | disposition home or self-care (01) ==
PROVIDERS: PCP Family Medicine; Visit Provider Otolaryngology Otolaryngology/Facial Plastic Surgery
PROC: (CPT 31256; principal; 2025-03-31 08:30)
PROC: (CPT 30520; 2025-03-31 08:30)
DX: J32.2 Chronic ethmoidal sinusitis (principal); J34.2 Deviated nasal septum; J34.3 Hypertrophy of nasal turbinates; G89.18 Other acute postprocedural pain; Z79.01 Long term (current) use of anticoagulants; Z79.84 Long term (current) use of oral hypoglycemic drugs; Z98.890 Other specified postprocedural states; Z86.79 Personal history of other diseases of the circulatory system
CPT/HCPCS: 31256; 31296; 31257; 30140; 61782; 82948; J0690; A9270; C1726; J1010; J1100; J1165; J1171; J1596; J2003; J2004; J2250; J2405; J2704; J2919; J3010; J3301; J7050; J7120

== ENCOUNTER 2025-05-19 14:02 | Outpatient (CLI) | payer MEDICARE, OTHER, SELFPAY ==
[2025-05-19 15:35] LABS: Alanine Aminotransferase 104 U/L (6-50); Albumin Level 4.6 g/dL (3.5-5.1); Alkaline Phosphatase 73 U/L (38-126); Aspartate Amino Transferase 74 U/L (17-59); Bilirubin,Total 0.4 mg/dL (0.2-1.3); Total Protein 7.5 g/dL (6.3-8.2)
== END 2025-05-19 14:03 | disposition home or self-care (01) ==
PROVIDERS: PCP Family Medicine; Visit Provider Physician Assistant Medical
DX: R79.89 Other specified abnormal findings of blood chemistry (principal); K76.0 Fatty (change of) liver, not elsewhere classified
CPT/HCPCS: 36415; 80076

== ENCOUNTER 2025-06-15 08:22 | Outpatient (CLI) | payer MEDICARE, OTHER, SELFPAY ==
--- NOTE | ~2025-06-15 | US_ITS ---
Examination: US abdomen complete Clinical History: K76.0 - Fatty (change of) liver, not elsewhere classified . Comparison: Abdominal ultrasound 06/12/2023 Technique: Complete abdominal sonography Findings: Liver: Normal size. Echogenic. No intrahepatic biliary ductal dilatation. Normal hepatopedal flow main portal vein. Common duct: Normal caliber, 5 mm. Gallbladder: No stones. No wall thickening. No pericholecystic fluid. Spleen: Unremarkable. Pancreas: Mostly obscured by bowel gas. Kidneys: Unremarkable. Aorta: No aneurysmal dilatation. Retrohepatic IVC: Unremarkable. IMPRESSION: 1. No acute findings. 2. Hepatic steatosis and/or hepatocellular disease. Reviewed, dictated and finalized at location [facility]. [employer] [employer] [facility]
== END 2025-06-15 08:23 | disposition home or self-care (01) ==
PROVIDERS: PCP Nurse Practitioner; Visit Provider Physician Assistant Medical
DX: K76.0 Fatty (change of) liver, not elsewhere classified (principal); K76.89 Other specified diseases of liver; R79.89 Other specified abnormal findings of blood chemistry
CPT/HCPCS: 76700

== ENCOUNTER 2025-07-05 10:04 | Outpatient (CLI) | payer MEDICARE, OTHER, SELFPAY ==
--- OUTSIDE RECORDS SUMMARY | 2025-07-05 10:21 | XMS_ITS | Clinical Summary ---
Author Organization [facility] Address [address] [place] [address] Care Team Providers Care Glazier Helper Name Role Phone Siva Chacon MD Primary Care Provider [phone] Allergies Active Allergy Reactions Criticality Noted Date [...] tablet (20 mg total) by mouth. Active Family History Medical History Relation Comments None [...] Annual Medicare Wellness Visit 2022 COVID-19 Vaccine ( season) 2025 07/11/2021, 10/18/2020, 09/20/2020 Influenza Adult (#1) 2025 04/17/2017, 04/05/2013, 05/15/2005, Additional history exists DTaP, Tdap and Td Vaccines (3 - Td or Tdap) 10/21/2030 10/21/2020, 10/14/2014, 06/23/1998 RSV Immunization or 60+ Years (1 - 1-dose 75+ series) 02/04/2032 Meningococcal Vaccine Aged Out 06/23/1998 No fuad keegan eligible based on patient's age to complete this topic Hepatitis A Vaccines Aged Out 01/25/1999, 06/20/19 98 No longer eligible based on patient's age to complete this topic Meningococcal B Vaccine Aged Out No l onger eligible based on patient's age to complete this topic RSV Immunizations Under 20 Months Aged Out No longer eligible based on patient's age to complete this topic Insurance MEDICARE [facility] Care Teams Glazier Helper Relationship Specialty Start Date End Date Siva Chacon MD [address] [place] [address] PCP - General 10/05/16
--- OUTSIDE RECORDS SUMMARY | 2025-07-05 10:21 | XMS_ITS | Encounter Summary ---
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
--- OUTSIDE RECORDS SUMMARY | 2025-07-05 10:21 | XMS_ITS | Clinical Summary ---
Author Organization [facility] [address] [facility] Address [address] [place] [address] Care Team Providers Care Allergy Physician Name Role Phone Yara Nguyen PA-C Primary Care Provider [phone] Allergies Active Allergy Reactions Criticality Noted Date Comments Cephradine Unknown 05/21/2001 Medications finasteride (PROPECIA) 1 mg Tablet Take 1 mg by mouth daily. Active loratadine (CLARITIN) 10 mg tablet Take 10 mg by mouth daily. Active glucagon (Gvoke PFS 1-Pack Syringe) 1 mg/0.2 mL Syringe 1 Syringe by NOT APPLICABLE route. 1 Active pantoprazole (PROTONIX) 20 mg Tablet, Delayed Release (E.C.) 4 Active sertraline (ZOLOFT) 25 mg tablet Take 1 Tablet by mouth daily. 5 Active empagliflozin (Jardiance) 10 mg tablet Take 10 mg by mouth daily in the morning. Active apixaban (Eliquis) 5 mg tablet Take 1 Tablet (5 mg) by mouth 2 times daily. 180 Tablet 4 5 Active rosuvastatin (CRESTOR) 20 mg tablet Take 1 Tablet (20 mg) by mouth daily at bedtime. 90 Tablet 4 5 Active Active Problems Patient Care Coordination No te Formatting of this note migh t be different from the original. Reliability Manager - Dr. Carbone [facility] - [address] [facility] Problem Noted Date Diagnosed Date Type 2 diabetes mellitus wit hout complication, without long-term current use of insulin 07/29/2024 Essential hypertension 07/29/2024 Atrial tachycardia 03/13/2020 PAC (premature atrial contraction) 03/13/2020 Pure hypercholesterolemia 03/13/2020 Encounters Date Type Department Care Team Description 06/27/2025 External Device Data STL ABSTRACTION Provider, Abstract 06/23/2025 2:30 PM SKIDDER Office Visit [facility] Electrophysiology - [address] [facility] [address] [address] [facility] [address] [place] [address] Sarah Landeros NP 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 ([facility]) (Primary Dx); Encounter for long-term (current) use of medications; care home (current) use of anticoagulants; S/P ablation of atrial fibrillation 05/05/2025 4:00 PM CDT Office Visit [facility] - [address] [facility] [address] [facility] [address] [place] [address] Rossy Carbone MD PAF (paroxysmal atrial fibrillation) ([facility]) (Primary Dx); PAC (premature atrial contraction); Atrial tachycardia; Nonrheumatic mitral valve regurgitation; Pure hypercholesterolemi a; Essential hypertension; Type 2 diabetes mellitus without complication, without long-term current use of insulin ([facility]) 04/26/2025 External Device Data STL ABSTRACTION Provider, Abstract 04/25/2025 External Device Data STL ABSTRACTION Provider, Abstract 04/11/2025 External Device Data STL ABSTRACTION Provider, Abstract from Last 3 Months Social History Tobacco Use Types Packs/Day Years Used Date Smoking Tobacco: Never Smokeless Tobacco: Never Tobacco Cessation:Counseling Given: Not Answered Alcohol Use Standard Drinks/Week Comments Not Currently 5 (1 standard drink = 0.6 oz pur [...] Sign Reading Time Taken Comments Blood Pressure 131/80 06/23/2025 2:00 PM SKIDDER Pulse 58 06/23/2025 2:00 PM SKIDDER Temperature 36.7 C (98 F) 11/04/2024 2:57 PM CDT Respiratory Rate 17 11/04/2024 4:30 PM CDT Oxygen Saturation 94% 06/23/2025 2:00 PM SKIDDER Inhaled Oxygen Concentration - - Weight 84.8 kg (187 lb) 06/23/2025 2:00 PM SKIDDER Height 188 cm (6' 2) 06/23/2025 2:00 PM SKIDDER Body Mass Index 24.01 06/23/2025 2:00 PM SKIDDER Plan of Treatment Upcoming Encounters Date Type Department Care Team (Late st Contact Info) Description 12/26/2025 10:45 AM CDT Office Visit [facility] Electrophysiology - [address] [address] [place] [address] [facility] [address] [place] [address] 05/04/2026 2:00 PM CDT Office Visit [facility] - [address] [facility] [address] [address] [facility] [address] [place] [address] Franky Ram ANP [address] [facility] [address] [place] [address] Health Maintenance Due Date Last [...] Flex Sig/CT Colonography Q 5 years 2002 RSV VACCINE (60+ or ) (1 - Risk 50-74 years 1-dose series) 2007 ZOSTER VACCINE (1 of 2) 2007 DIABETES ANNUAL RETINAL EXAM 03/11/2023 03/11/2022 INFLUENZA VACCINE (#1) 2025 04/17/2017, 2012 COVID-19 Vaccine (3 2024-2 6 season) 2025 10/18/2020, 09/20/2020 DIABETES HBA1C Q 6 MONTHS 04/19/20252024, 07/18/2024, 04/13/2024, Additional history exists Medical Devices Implanted Type Area Torch Burner Device Identifier Shelf Expiration Date Model / Serial / Lot Dev Cardiva Vascade Mvp Xl Vvcs 10-12 [id number] - [id number] Implanted:Qty : 1 on 11/04/2024 by Tal Tavarez MD at [facility] Closure Device Right: [employer] [id number] 06/16/2026 [id number] L / / [id number] Procedures Procedure Name Priority Date/Time Associated Diagnosis Comments [place] ECG ROUTINE ECG W/LEAST 12 LDS W/I&R Routine 06/23/2025 2:30 PM SKIDDER 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 (CMS/HCC) Encounter for long-term (current) use of medications terminal 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 (current) use of anticoagulants S/P ablation of atrial fibrillation from Last 3 Months Results * [place] ECG ROUTINE ECG W/LEAST 12 LDS W/I&R (06/23/2025 2:30 PM SKIDDER) Narrative Sarah Landeros NP - 06/23/2025 2:30 PM SKIDDER Sarah Landeros NP 06/23/2025 2:14 PM EKG Date/Time: 06/23/2025 2:30 PM Performed by: Tal Tavarez MD Authorized by: Tal Tavarez MD Tal Tavarez MD ECG ORDERABLES Edited Result - Final from Last 3 Months Insurance MEDICARE PART A AND B [facility] Care Teams Allergy Physician Relationship Specialty Start Date End Date Yara Nguyen PA-C [address] [place] [id number] PCP - General Physician Department Traffic Freight Router 02/17/20
--- OUTSIDE RECORDS SUMMARY | 2025-07-05 10:21 | XMS_ITS | Clinical Summary ---
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 Gender Identity Not on file Sexual Orientation Not on file Last Filed Vital Signs Vital Sign Reading Time Taken Comments Blood Pressure 142/90 08/12/2021 11:26 PM MORTGAGE COUNSELOR Pulse 63 08/12/2021 11:26 PM MORTGAGE COUNSELOR Temperature 36.4 C (97.6 F) 08/12/2021 7:47 PM MORTGAGE COUNSELOR Respiratory Rate 20 08/12/2021 11:26 PM MORTGAGE COUNSELOR Oxygen Saturation 95% 08/12/2021 11:26 PM MORTGAGE COUNSELOR Inhaled Oxygen Concentration - - Weight 89.1 kg (196 lb 6.9 oz) 08/12/2021 7:47 P M MORTGAGE COUNSELOR Height 188 cm (6' 2) 08/12/2021 7:47 PM MORTGAGE COUNSELOR Body Mass Index 25.22 08/12/2021 7:47 PM MORTGAGE COUNSELOR Plan of Treatment Not on file Additional Health Concerns Infection Onset Date Last Indicated COVID19 10/21/2020 10/20/2020 Insurance CLAIMS CLAIMS MEDICARE [facility] Care Teams Kiln Head House Operator Relationship Specialty Start Date End Date Siva Chacon MD PCP - General 10/21/20
[2025-07-05 10:42] LABS: INR 1.3; Prothrombin Time 16.3 Seconds (11.1-14.7)
[2025-07-05 10:45] LABS: Alanine Aminotransferase 107 U/L (6-50); Albumin Level 4.6 g/dL (3.5-5.1); Alkaline Phosphatase 78 U/L (38-126); Aspartate Amino Transferase 75 U/L (17-59); Bilirubin,Total 0.5 mg/dL (0.2-1.3); Total Protein 7.8 g/dL (6.3-8.2)
[2025-07-05 11:17] LABS: Hepatitis B Surface Antigen Negative (Negative)
[2025-07-05 11:23] LABS: HAV RESULT Negative (Negative); Hepatitis B Core IgM Result Negative (Negative)
[2025-07-06 11:08] LABS: GGT 34 IU/L (0-65)
[2025-07-08 13:08] LABS: ANA by IFA Rfx Titer/Pattern Negative (.)
== END 2025-07-05 10:05 | disposition home or self-care (01) ==
PROVIDERS: PCP Family Medicine; Visit Provider Nurse Practitioner Family
DX: K76.0 Fatty (change of) liver, not elsewhere classified (principal); R79.89 Other specified abnormal findings of blood chemistry
CPT/HCPCS: 36415; 80074; 80076; 82103; 82104; 82390; 82977; 85610; 86015; 86038; 86376; 86381